=== PATIENT | female | born 1950 | race Two or more races ===

== ENCOUNTER 2022-02-28 12:55 | Outpatient (REF) | payer OTHER, SELFPAY ==
[2022-02-28 14:49] LABS: Vitamin B12 1089 pg/mL (200-900)
== END 2022-02-28 12:56 | disposition home or self-care (01) ==
LOC: HO.LAB 12:55
PROVIDERS: Visit Provider Psychiatry & Neurology Neurology
DX: F03.90 Unspecified dementia, unspecified severity, without behavioral disturbance, psychotic disturbance, mood disturbance, and anxiety (principal)
CPT/HCPCS: 36415; 82607

== ENCOUNTER 2024-05-15 08:09 | Outpatient (REF) | payer OTHER, SELFPAY ==
[2024-05-15 14:26] LABS: MANUAL DIFF FLAG NO
[2024-05-15 14:36] LABS: Basophils Percent Auto 0.5 % (0-2); Eosinophils Absolute Auto 0.1 X10*3/uL (0.0-0.4); Eosinophils Percent Auto 1.4 % (0-4); Hematocrit 40.6 % (37.0-47.0); Hemoglobin 13.4 g/dl (12.0-16.0); Imm Gran Abs Auto 0.02 X10*3/uL (0.00-0.03); Imm Gran Pct Auto 0.3 % (0.0-0.4); Lymphocytes Absolute Auto 1.5 X10*3/uL (1.2-4.9); Lymphocytes Percent Auto 25.8 % (20-40); Mean Corpuscular Hemoglobin 27.6 pg (27.0-33.0); Mean Corpuscular Volume 83.5 fL (80.0-98.0); Mean Platelet Volume 11.9 fL (9.4-12.3); Monocytes Absolute Auto 0.4 X10*3/uL (0.1-1.2); Monocytes Percent Auto 6.1 % (2-11); Neutrophils Absolute Auto 3.8 x10*3/uL (2.0-8.3); Neutrophils Percent Auto 65.9 % (45-73); Platelet Count 214 X10*3/uL (160-400); Red Blood Count 4.86 X10*6/uL (4.20-5.50); Red Cell Distribution Width 13.6 % (11.0-16.0); White Blood Count 5.8 X10*3/uL (4.8-10.8)
[2024-05-15 14:56] LABS: Alanine Aminotransferase 36 U/L (0-31); Albumin Level 4.3 g/dL (3.5-5.0); Alkaline Phosphatase 85 U/L (39-117); Anion Gap 9 (12-20); Aspartate Amino Transferase 37 U/L (5-31); Bilirubin Total 1.4 mg/dL (0.0-1.0); Blood Urea Nitrogen 20 mg/dL (9-16); Calcium 9.4 mg/dL (8.4-10.2); Carbon Dioxide 32 mmol/L (22-29); Chloride 104 mmol/L (96-108); Cholesterol 139 mg/dL (<200); Estimated Glomerular Filt Rate > 60; Glucose Random 95 mg/dL (60-115); HDL Cholesterol 46 mg/dL (>40); LDL Cholesterol Calculated 71 mg/dL (<100); Potassium 3.4 mmol/L (3.3-5.1); Sodium 142 mmol/L (135-145); Total Protein 7.7 g/dL (6.5-8.0); Triglycerides 110 mg/dL (<150)
[2024-05-15 15:16] LABS: TSH reflex Free T4 2.12 uIU/mL (0.32-4.0)
[2024-05-16 03:38] LABS: ~Hepatitis C Antibody Nonreactive (Nonreactive)
== END 2024-05-15 08:10 | disposition home or self-care (01) ==
LOC: HO.CHCLDS 08:09
PROVIDERS: Visit Provider Internal Medicine
DX: I10 Essential (primary) hypertension (principal); M19.90 Unspecified osteoarthritis, unspecified site
CPT/HCPCS: 36415; 80053; 80061; 84443; 85025; 86803

== ENCOUNTER 2024-08-26 15:50 | Outpatient (AMB) | payer MEDICARE, SELFPAY ==
--- NOTE | 2024-08-26 15:51 | A.OFFVIS_ITS ---
Vital Signs 08/26/24 16:04 Height 5 ft 4 in Weight 208 lb 8.917 oz BMI 35.8 BP 152/78 H Blood Pressure Location Rt brachial Position Sitting Pulse 82 Pulse Source Pulse Oximeter Pulse Oximetry (%) 96 Oxygen Delivery Method Room Air Intake Visit Reasons: colo screening +cologuard Intake Note: NEW PATIENT for colo screening per + cologuard (w/ referral). Prior hx of colo/egd? Once previously per pt. Chief Complaint; C/O intermittent constipation and rectal pain w/o bleeding per pt. Pt reports she goes to the bathroom frequently but has small, hard pieces of stool that she passes. Pt last had colo ~ 20 years ago. Machine Stemmer Required: Yes Machine Stemmer Services: Machine Stemmer Offered & Declined Machine Stemmer Name: Family Information Interpreted: non-clinical & clinical Accompanied by: Son Allergies No Known Allergies Allergy (Verified 08/26/24 15:52) HPI HPI colo screening +cologuard: Details: 73 year old? female with past medical history of osteoporosis, venous insufficiency, hypothyroidism, insomnia, asthma, arthritis, hypertension is here today for pre colonoscopy screening.? Patient is accompanied by her son. Patient was sent to us by her PCP.? Last colonoscopy about 20 years ago or so. Patient recently had positive Cologuard.? Patient denies any gastrointestinal symptoms in the past or at present.? Patient reports occasional constipation. Denies any personal or family history of gastrointestinal disease, colon polyps, or CRC.? Denies history of difficulty with sedation or anesthesia in the past.? Negative for history of sleep apnea.? Denies any history of cardiac, renal, pulmonary, or hepatic disease.?? No history of infectious? diseases like hepatitis A, B, C, HIV or tuberculosis.? Patient is not on any anticoagulation [facility] Medical History Osteoporosis Venous insufficiency Venous stasis dermatitis Hypothyroidism Insomnia Mild intermittent asthma Arthritis HTN (hypertension) Surgical History [place] teeth extracted Review of Systems Const Denies weight gain and Denies weight loss ENT Reports no additional complaints, Denies dysphagia and Denies odynophagia Card Reports no additional complaints Resp Reports no additional complaints GI Denies abdominal pain, Denies belching, Denies melena, Denies bloating, Denies change in bowel habits, Reports constipation, Denies dysphagia, Denies excessive flatus, Denies dyspepsia, Denies heartburn, Denies diarrhea, Denies loose stools, Denies nausea, Denies odynophagia and Denies vomiting Reports no additional complaints Musc Reports no additional complaints Neuro Reports no additional complaints Psych Reports no additional complaints Endo Reports no additional complaints Physical Exam Vital Signs: Last Vital Signs Pulse 82 08/26/24 16:04 BP 152/78 H 08/26/24 16:04 Pulse Ox 96 08/26/24 16:04 Oxygen Delivery Method Room Air 08/26/24 16:04 BMI result Body Mass Index 35.8 Const General: healthy appearing and no acute distress Nutritional Appearance: well nourished and obese Orientation/consciousness: patient oriented x3 Resp Effort & Inspection: normal respiratory effort, able to speak in complete sentences, no tracheal deviation and symmetric chest movement Auscultation: clear to auscultation bilaterally Cardio Rate: regular rate GI Inspection: Yes normal to inspection and No distended Palpation (GI): Soft to palpation, not firm, nontender and No hepatosplenomegaly present Auscultation: normal bowel sounds General: Yes no CVA tenderness Back/Spine/Pelvis Back: no CVA tenderness Skin General skin exam: elasticity normal, turgor normal and dry skin Neuro General: patient oriented x3 Psych Appearance: grossly normal Mental Status: mental status grossly normal Assessment & Plan Assessment & Plan (1) Screen for colon cancer: Code(s): Z12.11 - Encounter for screening for malignant neoplasm of colon (2) Positive colorectal cancer screening using Cologuard test: Code(s): R19.5 - Other fecal abnormalities Plan Patient denies any cardiac or respiratory symptoms.? Occasional constipation. Patient reports that she usually increases water or eats more vegetables. Denies any issues with anesthesia in the past.? Denies any history of sleep apnea.? No history infectious diseases in the past or present.? Not on any anticoagulation therapy.? No family or personal history of colon cancer or polyps.? Patient denies melena, hematochezia, unintentional weight loss or ribbo n like stools.? Discussed at length the pre-procedure,? prep, diet & medications as well as what to expect prior, during and after the procedure.?? Stressed the importance of good bowel prep.? Recommended the use of Vaseline or Calmoseptine OTC & baby wipes with bowel movements to promote comfort.? ?Patient verbalizes understanding and agrees to plan of care.? She was given the opportunity to ask questions and all questions answered.? We will see her after the procedure.? Medications: New polyethylene glycol 3350 (Miralax) As directed by gastroenterology department at [facility] 238 grams PO ONCE 238 grams 0RF Z12.11 - Encounter for screening for malignant neoplasm of colon bisacodyl (Dulcolax (bisacodyl)) take 4 tabs at noon the day before your colonoscopy 20 mg (4 x 5 mg) PO ONCE 4 tabs 0RF 1 day Z12.11 - Encounter for screening for malignant neoplasm of colon Coding Level of Care Code New Pt Level 3 (72200) Diagnoses Screen for colon cancer Z12.11 Positive colorectal cancer screening using Cologuard test R19.5 Time Spent (min) 40 Comment 30 minutes spent with patient and additional 10 minutes spent reviewing her records
[2024-08-26 16:04] VITALS: BP 152/78; PULSE 82; O2SAT 96; BMI 35.8
--- OUTSIDE RECORDS SUMMARY | 2024-08-26 18:36 | XMS_ITS | Encounter Summary ---
Author Organization [facility] Address [address] [place] [address] Care Team Providers Care Car Retarder Operator Name Role Phone Brady Schmidt MD Primary Care Provider Un available Alivia Yañez MD Primary Care Provider Unavail able Franko Eli MD Primary Care Provider Karen Urbano MD Primary Care Prov ider Karen Ramos MD Primary Care Prov ider Franko Eli MD Primary Care Provider Karen Urbano MD Primary Care Prov ider Encounter Details Date Type Department Care Team Description 10/22/2015 [facility] Medical Records [address] [place] [id number] Kay Webb Social History Tobacco Use Types Packs/Day Years Used Date Smoking Tobacco: Never Smokeless Tobacco: Never Alcohol Use Standard Drinks/Week Comments No 0 (1 standard drink = 0.6 oz pur e alcohol) Sex Assigned at Date Recorded Not on file Job Start Date Occupation Industry Not on file Not on file Not on file documented as of this encounter Plan of Treatment Not on file documented as of this encounter Visit Diagnoses Not on filedocumented in this encounter Care Teams Car Retarder Operator Relationship Specialty Start Date End Date Brady Schmidt MD PCP - General Internal Medicine 09/03/15 9 Alivia Yañez MD PCP - General Internal Medicine 01/28/19 05/01/21 Franko Eli MD PCP - General Internal Medicine 05/02/21 11/21/21 Karen Ramos MD [address] [place] [id number] PCP - General Internal Medicine 12/26/21 12/26/21 Karen Ramos MD [address] [place] [address] PCP - General Internal Medicine 11/22/21 12/01/21 Franko Eli MD PCP - General Internal Medicine 12/02/21 12/25/21 Karen Ramos MD [address] [place] [address] PCP - General Internal Medicine 12/27/21 documented as of this encounter
--- OUTSIDE RECORDS SUMMARY | 2024-08-26 18:36 | XMS_ITS | Encounter Summary ---
Author Organization [facility] Address [address] [place] [address] Care Team Providers Care Catering Coordinator Name Role Phone Brady Schmidt MD Primary Care Provider Un available Alivia Yañez MD Primary Care Provider Unavail able Franko Eli MD Primary Care Provider Karen Urbano MD Primary Care Prov ider Karen Ramos MD Primary Care Prov ider Franko Eli MD Primary Care Provider Karen Urbano MD Primary Care Prov ider Encounter Details Date Type Department Care Team Description 09/16/2015 Release of Information Medical Records [address] [place] [id number] Abstract, Provider Social History Tobacco Use Types Packs/Day Years Used Date Smoking Tobacco: Never Smokeless Tobacco: Never Alcohol Use Standard Drinks/Week Comments Not Asked 0 (1 standard drink = 0.6 oz pur e alcohol) Sex Assigned at Date Recorded Not on file Job Start Date Occupation Industry Not on file Not on file Not on file documented as of this encounter Plan of Treatment Not on file documented as of this encounter Visit Diagnoses Not on filedocumented in this encounter Care Teams Catering Coordinator Relationship Specialty Start Date End Date Brady Schmidt MD PCP - General Internal Medicine 09/03/15 9 Alivia Yañez MD PCP - General Internal Medicine 01/28/19 05/01/21 Franko Eli MD PCP - General Internal Medicine 05/02/21 11/21/21 Karen Ramos MD [address] [place] [id number] PCP - General Internal Medicine 12/26/21 12/26/21 Karen Ramos MD [address] [place] [id number] PCP - General Internal Medicine 11/22/21 12/01/21 Franko Eli MD PCP - General Internal Medicine 12/02/21 12/25/21 Karen Ramos MD [address] [place] [id number] PCP - General Internal Medicine 12/27/21 documented as of this encounter
--- OUTSIDE RECORDS SUMMARY | 2024-08-26 18:36 | XMS_ITS | Encounter Summary ---
Author Organization [facility] Address [address] [facility] [address] [place] [address] Care Team Providers Care Quality Control Auditor Name Role Phone Jef Guzman MD Primary Care Provider Reason for Visit * Reason Onset Date Comments Appointment Request 07/04/2024 Encounter Details Date Type Department Care Team ([facility] st Contact Info) Description 07/04/2024 Telephone [facility] [address] [place] [address] Jef Guzman MD [address] [place], [place] [phone] Appointment Request Social History Tobacco Use Types Packs/Day Years Used Date Smoking Tobacco: Never Passive Smoke Exposure: Never Smokeless Tobacco: Never Alcohol Use Standard Drinks/Week Comments Never 0 (1 standard drink = 0.6 oz pur e alcohol) Alcohol Answer Date Recorded Q1: How often do you have a drink containing alc ohol? 2 05/02/2024 Q2: How many drinks containi ng alcohol do you have on a typical day when you are drinking? 0 05/02/2024 Q3: How often do you have six or more drinks on one occasion? 1 05/02/2024 Depression Answer Date Recorded Patient Health Questionnaire-9 Score 17 05/02/2024 Patient Health Questionnaire-9 Score 17 05/02/2024 Last PHQ-9: Questionnaire Data Not on file 1 07/03/2023 Housing Stability Answer Date Recorded What is your housing situation today? I have elsa humphrey 05/02/[address] you li ve. Do you have problems with any of the following? Inadequate heat 05/02/2024 Food Insecurity Answer Date Recorded Within the past 12 months, y ou worried that your food would run out before you got money to buy more: Sometimes True 12/06/ 2024 Within the past 12 months,th e food you bought just didn't last and you didn't have enough money to get more: Sometimes True 05/02/2024 Transportation Answer Date Recorded In the past 12 months, has l ack of transportation kept you from medical appts, meetings, work or from getting things needed for daily living? No 04/18/2024 Utilities Answer Date Recorded In the past 12 months, has t he electric, gas, oil or water company threatened to shut off services in your home? No 05/02/2024 Depression Answer Date Recorded Patient Health Questionnaire-2 Score 5 05/02/2024 Internet Access Answer Date Recorded Internet Access Q1 Yes 05/02/2024 Internet Access Q2 Not on file 05/02/2024 Comments Unknown Sex and Gender Information Value Date Recorded Sex Assigned at Female 03/27/2022 10:28 AM EDT Legal Sex Female 10:28 AM EDT Gender Identity Female 03/27/2022 10:28 AM EDT Sexual Orientation Straight 03/27/2022 10 :28 AM EDT documented as of this encounter Miscellaneous Notes * Telephone Encounter - Sang Ivory - 07/04/2024 11:05 AM EST Tc from pt stating that they received a letter to schedule a derm appt with . documented in this encounter Plan of Treatment Upcoming Encounters Date Type Department Care Team (Late st Contact Info) Description 09/09/2024 9:30 AM EDT Office Visit [facility] MED & PED[facility] [address] [place] [address] Jef Guzman MD [address] [place] [address] 09/10/2024 2:30 PM EDT Office Visit [facility] ADULT DENTAL [address] [place] [address] Ada Rahman, DDS [address] [place] [address] 02/23/2025 1:00 PM EDT Office Visit [facility] [address] [place] [address] Gunjan Hardwick documented as of this encounter Visit Diagnoses Not on filedocumented in this encounter Additional Health Concerns Assessment Noted Time PHQ-9 Depression Total Score: 17 024 2:59 PM EST documented as of this encounter Care Teams Quality Control Auditor Relationship Specialty Start Date End Date Jef Guzman MD [address] [place] [address] PCP - General Internal Medicine 05/02/24 documented as of this encounter
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
--- OUTSIDE RECORDS SUMMARY | 2024-08-26 18:36 | XMS_ITS | Encounter Summary ---
Author Organization [facility] Address [address] [facility] [address] [place] [address] Care Team Providers Care Theatre Director Name Role Phone Jef Guzman MD Primary Care Provider [phone] Reason for Referral * Consultation (Routine) - Pending Review Specialty Diagnoses / Procedures Referred By Sue velez Referred To Contact Gastroenterology Diagnoses Positive colorectal cancer screening using Cologuard test Jef Guzman MD [address] [place] [address] Phone: tel: fax: Manjinder Melchor MD [address] [place] [address] Phone: tel: fax: Referral ID Status Reason Start Date Expiration Date Visits Requested Visits Authorized [id number] Pending Review Specialty Services Required 05/29/2024 05/29/2025 1 1 Encounter Details Date Type Department Care Team (Late st Contact Info) Description 05/29/2024 Orders Only [facility] [address] [place] [address] Jef Guzman MD [address] [place] [address] Positive colorectal cancer screening using Cologuard test (Primary Dx) Social History Tobacco Use Types Packs/Day Years [...] got money to buy more: Sometimes True 2023 Within the past 12 months,th e food [...] AM EDT documented as of this encounter Plan of Treatment Upcoming Encounters Date Type Department Care Team ([facility] st Contact Info) Description 09/09/2024 9:30 AM EDT Office Visit [facility] [address] [place], [place] [phone] Jef Guzman MD [address] [place] [address] 09/10/2024 2:30 PM EDT Office Visit [facility] [address] [place] [address] Ada Rahman, DDS [address] [facility] [place] [address] 02/23/2025 1:00 PM EDT Office Visit [facility] [address] [place] [address] Gunjan Hardwick Scheduled Referrals Name Type Priority Associated Diagnoses Order Schedule Referral to Gastroenterology Outpatient Referral Routine Positive colorectal cancer screening using Cologuard test Expected: 05/29/2024 (Approximate), Expires: 05/29/2025 documented as of this encounter Visit Diagnoses Diagnosis Positive colorectal cancer screening using Cologuard test- Primary documented in this encounter Additional Health Concerns Assessment Noted Time PHQ-9 Depression Total Score: 17 024 2:59 PM EST documented as of this encounter Care Teams Theatre Director Relationship Specialty Start Date End Date Jef Guzman MD [address] [place] [address] PCP - General Internal Medicine 05/02/24 documented as of this encounter
--- OUTSIDE RECORDS SUMMARY | 2024-08-26 18:36 | XMS_ITS | Encounter Summary ---
Author Organization [facility] Address [address] [facility] 7[address] [place] [address] Care Team Providers Care Scheduling Coordinator Name Role Phone Jef Guzman MD Primary Care Provider Encounter Details Date Type Department Care Team (Latest Contact Info) Description 11/03/2020 Abstract [facility] CONVERSIONS Dental, Provider, DDS Social History Tobacco Use Types Packs/Day Years Used Date Smoking Tobacco: Never Assessed Comments Unknown Sex and Gender Information Value [...] Description 09/09/2024 9:30 AM EDT Office Visit [facility] MED [facility] PED[facility] [address] [place] [address] Jef Guzman MD [address] [place] [address] 09/10/2024 2:30 PM EDT Office Visit [facility]ULT DENT[facility] [address] [place] [address] Ada Rahman DDS [address] [place], [place] [phone] 02/23/2025 1:00 PM EDT Office Visit [facility] [address] [place] [address] Gunjan Hardwick documented as of this encounter Visit Diagnoses Not on filedocumented in this encounter Care Teams Scheduling Coordinator Relationship Specialty Start Date End Date Jef Guzman MD [address] [place] [address] PCP - General Internal Medicine 05/02/24 documented as of this encounter
--- OUTSIDE RECORDS SUMMARY | 2024-08-26 18:37 | XMS_ITS | Encounter Summary ---
Author Organization [facility] Address [address] [place] [address] Care Team Providers Care Pool Finisher Name Role Phone Brady Schmidt MD Primary Care Provider Un available Alivia Yañez MD Primary Care Provider Franko Eldridge MD Primary Care Provider Karen Urbano MD Primary Care Prov ider Karen Ramos MD Primary Care Prov ider Franko Eli MD Primary Care Provider Karen Urbano MD Primary Care Prov ider Reason for Visit * Reason Onset Date Comments REFERRAL 06/02/2016 OBGYN Encounter Details Date Type Department Care Team Description 06/02/[address] [address] Brady Schmidt MD REFERRAL (OBGYN) Social History Tobacco Use Types Packs/Day Years Used Date Smoking Tobacco: Never Smokeless Tobacco: Never Alcohol Use Standard Drinks/Week Comments No 0 (1 standard drink = 0.6 oz pur e alcohol) Sex Assigned at Date Recorded Not on file Job Start Date Occupation Industry Not on file Not on file Not on file documented as of this encounter Miscellaneous Notes * Telephone Encounter - Yaz Rodriguez - 06/02/2016 3:02 PM EST FYI to referring provider; We have attempted to contact this patient for the order placed to see SENIOR UX DESIGNER for routine exam, however, patient has not responded to any of our attempts and for this reason patients order will be closed. If patient changes her mind please have her contact SENIOR UX DESIGNER for an appointment Thank you documented in this encounter Plan of Treatment Not on file documented as of this encounter Visit Diagnoses Not on filedocumented in this encounter Care Teams Pool Finisher Relationship Specialty Start Date End Date Brady Schmidt MD PCP - General Internal Medicine 09/03/15 9 Aliiva Yañez MD PCP - General Internal Medicine 01/28/19 05/01/21 Franko Eli MD PCP - General Internal Medicine 05/02/21 11/21/21 Karen Rmaos MD [address] [place] [id number] PCP - General Internal Medicine 12/26/21 12/26/21 Karen Ramos MD [address] [place] [address] PCP - General Internal Medicine 11/22/21 12/01/21 Franko Eli MD PCP - General Internal Medicine 12/02/21 12/25/21 Karen Ramos MD [address] [place] [id number] PCP - General Internal Medicine 12/27/21 documented as of this encounter
--- OUTSIDE RECORDS SUMMARY | 2024-08-26 18:37 | XMS_ITS | Clinical Summary ---
Author Organization [address] Address [address] [place] [id number] Phone Care Team Providers Care Mill Labor Supervisor Name Role Phone Jef Guzman MD Primary Care Provider [phone] Allergies Active Allergy Reactions Criticality Noted Date Comments Atorvastatin Cough 08/23/2016 Medications albuterol HFA (PROAIR HFA ; PROVENTIL HFA ; VENTOLIN HFA) 90 mcg/actuation inhaler Inhale 2 puffs by mouth every 4 (four) hours if needed for wheezing (cough). 4 Active amLODIPine (NORVASC) 5 mg tablet Take 1 tablet (5 mg total) by mouth 1 (one) time each day. 4 Active levothyroxine (SYNTHROID, LEVOTHROID) 50 mcg tablet Take 1 tablet (50 mcg total) by mouth 1 (one) time each day. 4 Active cyclobenzaprin e (FLEXERIL) 5 mg tablet Take 1 Tablet by mouth 2 times daily as needed for Muscle spasms for up to 10 days. 4 Active simvastatin (ZOCOR) 20 mg tablet Take 1 tablet (20 mg total) by mouth at bedtime. 4 Active loratadine (CLARITIN) 10 mg tablet Take 1 tablet (10 mg total) by mouth 1 (one) time each day. 4 Active triamterene-hy droCHLOROthiaz edin (MAXZIDE-25) 37.5-25 mg per tablet TAKE 1 TABLET BY MOUTH DAILY 20 tablet 5 Active triamterene-hy droCHLOROthiaz edin (MAXZIDE-25) 37.5-25 mg per tablet TAKE 1 TABLET BY MOUTH DAILY 30 tablet 01/09 025 Discontinued Active Problems Problem Noted Date Diagnosed Date Intermittent asthma 07/07/2020 Internal hemorrhoids 06/07/2017 Depression 11/23/2016 Melasma 11/23/2016 Insomnia 05/25/2016 Overview (03/03/2024): F/u with [facility]N Diverticulosis 09/14/2015 Allergic rhinitis 09/10/2015 Hyperlipidemia 09/10/2015 Hypertension 09/10/2015 Hypothyroidism 09/10/2015 Osteoporosis 09/10/2015 Overview (03/03/2024): DEXA 02/18/15 Lumbar T score -2.8, Femur T score 0.3 Encounters Date Type Department Care Team Description 07/15/2024 7:59 AM EST - 07/15/2024 11:59 PM EST Hospital Encounter Radiology Department [address] [phone] Encounter for screening mammogram for breast cancer Discharge Disposition: Home or Self Care from Last 3 Months Immunizations Name Administration Dates Next Due Influenza trivalent, 0.5mL ( Fluzone High-dose) 65yo and older 07/25/2021,01/27/2020,04/14/2019 Influenza trivalent, with pr eservative (Fluzone; Afluria) 6mo and older 02/21/2017,05/25/2016 Influenza, Unspecified 02/20/2017 Tonchidot SARS-CoV-2 COVID-19, mRNA, LNP-S, preservative free 03/10/2021 Pneumococcal conjugate 20 va lent (Prevnar 20, PCV 20) 2mo and older 06/14/2022 Pneumococcal polysaccharide 23 valent (Pneumovax 23) 2yo and older 04/14/2019,03/29/2018 Tdap Tetanus diptheria acell ular pertussis (Boostrix; Adacel) 7yo and older 05/25/2016 Surgical History Surgery Date Site/Laterality Comments HYSTERECTOMY PROCEDURE: HISTORICAL HYSTERECTOMY; COMMENT: fibroids OTHER SURGICAL HISTORY Bilateral PROCEDURE: [place] STAB PHLEBT VARICOSE VEINS 1 XTR > 20 INCS SECTION PROCEDURE: HISTORICAL DELIVERY COLONOSCOPY 08/05/2007 PROCEDURE: HISTORICAL COLONOSCOPY; COMMENT: [facility]; small tubular adenoma from the right colon, second small polyp from the right colon was lost. COLONOSCOPY 04/17/2011 PROCEDURE: HISTORICAL COLONOSCOPY; COMMENT: [facility]; no polyps. COLONOSCOPY 08/28/2017 PROCEDURE: HISTORICAL COLONOSCOPY; COMMENT: Extensive diverticulosis sigmoid colon, no polyps. Medical History Medical History Date Comments Osteoporosis 09/10/2015 DX:Osteoporosis Hypothyroidism 09/10/2015 DX:Hypothyroidis m Hypertension 09/10/2015 DX:Hypertension Allergic rhinitis 09/10/2015 DX:Allergic rh initis Hyperlipidemia 09/10/2015 DX:Hyperlipidemi a Diverticulosis 09/14/2015 DX:Diverticulosi s Melasma 11/23/2016 DX:Melasma Depression 11/23/2016 DX:Depression Internal hemorrhoids 06/07/2017 DX:Internal hemorrhoids Family History Medical History Relation Name Comments Uterine cancer Aunt No Known Problems Brother No Known Problems Father No Known Problems Maternal Grandfather No Known Problems Maternal Grandmother Glaucoma Mother Hypertension Mother No Known Problems Other No Known Problems Paternal Grandfather Other: skin cancer Paternal Grandmother Breast cancer Sister 1 dx 60 Glaucoma Sister 1 dx 60 Ovarian cancer Sister 1 dx 60 Breast cancer Sister 2 No Known Problems Uncle Blindness Neg Hx Cataracts Neg Hx Macular degeneration Neg Hx Strabismus Neg Hx Relation Name Status Comments Aunt Brother Father (Age 69) hepatic ci rrhosis Maternal Grandfather Maternal Grandmother Mother Alive Other Paternal Grandfather Paternal Grandmother Sister 1 dx 60 Sister 2 Alive Uncle Social History Tobacco Use Types Packs/Day Years Used Date Smoking Tobacco: Never Smokeless Tobacco: Never Alcohol Use Standard Drinks/Week Comments No 0 (1 standard drink = 0.6 oz pur e alcohol) Comments No Sex and Gender Information Value Date Recorded Sex Assigned at Not on file Legal Sex Female 12:48 PM EST Gender Identity Not on file Sexual Orientation Not on file Obstetrics History Para Term AB IAB SAB Ectopic Multiple Livin g Live Births 2 2 2 2 Date Outcome GA Total Labor Labor/2nd/3rd Weight Sex Type Anes PTL Ivone A1 A5 Name Clin Term Term Last Filed Vital Signs Vital Sign Reading Time Taken Comments Blood Pressure 130/80 05/23/2024 10:28 AM EST Pulse 88 05/23/2024 10:28 AM EST Temperature - - Respiratory Rate 16 05/23/2024 10:28 AM EST Oxygen Saturation - - Inhaled Oxygen Concentration - - Weight 90.7 kg (200 lb) 05/23/2024 10:28 AM EST Height 152.4 cm (5') 05/23/2024 10:28 AM EST Body Mass Index 39.06 05/23/2024 10:28 AM EST Plan of Treatment Health Maintenance Due Date Last Done Comments Zoster Vaccines (1 of 2) 2002 RSV Immunization Patients 60+ Years Old (1 - Risk 60-74 years 1-dose series) 2012 Medicare Annual Wellness Visit 05/06/2022 Social Influencers of Health Screening 05/06/2022 COVID-19 Vaccine ( season) 2024 03/10/2021, 09/18/2020, 08/24/2020 Influenza Vaccine (#1) 2024 , 01/27/2020, 04/14/2019, Additional history exists Falls Risk Assessment 01/28/2025 01/29/2024 Depression Screening 05/02/2025 05/02/2024, 01/29/20 24 Hypertension/CHF/CAD Annual BMP Blood Test 05/15/2025 05/15/2024, 06/12/2023 DTaP,Tdap,and Td Vaccines (2 - Td or Tdap) 05/25/2026 05/25/2016 Breast Cancer Screening 07/15/2026 07/15/19, 07/05/2023, 06/30/2022, Additional history exists Colorectal Cancer Screening: FIT-DNA (Cologuard) 05/23/2027 05/23/2024 Cholesterol Screening (Lipid Panel) 05/15/2029 05/15/2024, 06/12/2023 Osteoporosis Screening (Bone Density Screening) 09/23/2031 09/22/2021, 06/02/2019 Colorectal Cancer Screening: Colonoscopy Discontinued 08/28/2017 Pneumococcal Vaccine: 50+ Years Completed 06/14/2022, 04/14/2019, 03/29/2018 Hepatitis C Screening Completed 05/15/2024, 017 HIB Vaccines Aged Out No longer eligi ble based on patient's age to complete this topic HPV Vaccines Aged Out No longer eligi ble based on patient's age to complete this topic Hepatitis A Vaccines Aged Out No long er eligible based on patient's age to complete this topic Hepatitis B Vaccines Aged Out No long er eligible based on patient's age to complete this topic IPV Vaccines Aged Out No longer eligi ble based on patient's age to complete this topic MMR Vaccines Aged Out No longer eligi ble based on patient's age to complete this topic Meningococcal ACWY Vaccine Aged Out N o longer eligible based on patient's age to complete this topic Meningococcal B Vacine Aged Out No lo nger eligible based on patient's age to complete this topic RSV Immunization Patients Under 20 months Aged Out No longer eligible based on patient's age to complete this topic Varicella Vaccines Aged Out No longer eligible based on patient's age to complete this topic Procedures Procedure Name Priority Date/Time Associated Diagnosis Comments MG MAMMO DIGITAL SCREENING W LAMONT BILAT Routine 07/15/2024 8:14 AM EST Encounter for screening mammogram for breast cancer DEPRESSION SCREENING Routine 01/29/2024 FALLS RISK ASSESSMENT Routine 01/29/2024 ANNUAL BMP BLOOD TEST Routine 06/12/2023 LIPID PANEL Routine 06/12/2023 DXA BONE DENSITY STUDY 1+ SITS AXIAL SKEL Routine 09/22/2021 9:14 AM EDT Age-related osteoporosis without current pathological fracture COLONOSCOPY Routine 08/28/2017 HEPATITIS C SCREENING Routine 08/23/2016 from Last 3 Months or Most Recently Relevant to Health Maintenance Results * MG Mammo Digital Screening w Lamont bilat (07/15/2024 8:14 AM EST) Anatomical Region Laterality Modality Breast Bilateral Mammography 07/15/2024 2:39 PM EST Impressions 07/15/2024 2:40 PM EST No mammographic evidence of malignancy. BREAST DENSITY: B - There are scattered areas of fibroglandular density. BI-RADS CATEGORY: 1 - NEGATIVE RECOMMENDATION: Screening bilateral mammogram is recommended in 1 year. MAMMO LOCATION: [facility], [address] [place] [address], [id number], . -------- FINAL REPORT -------- Dictated By: Basia Altman Dictated Date: 07/15/2024 14:39 ET Assigned Physician: Basia Altman Reviewed and Electronically Signed By: Basia Altman Signed Date: 07/15/2024 14:40 ET Workstation ID: [id number] Transcribed By: Self Edit Transcribed Date: 07/15/2024 14:39 ET Narrative 07/15/2024 2:40 PM EST EXAM: Screening Mammogram CLINICAL: 73 years old, Female, routine annual exam. COMPARISON: 07/05/2023 and as far back as 06/15/2020 ?? TECHNIQUE: Bilateral MLO and CC views were obtained digitally with 3-D mammogram (digital breast tomosynthesis). Computer-aided detection was utilized in evaluation of this exam (CAD). FINDINGS: No new suspicious mass, architectural distortion, or suspicious calcifications. Procedure Note Basia Altman MD - 07/15/2024 EXAM: Screening Mammogram CLINICAL: 73 years old, Female, routine annual exam. COMPARISON: 07/05/2023 and as far back as 06/15/2020 TECHNIQUE: Bilateral MLO and CC views were obtained digitally with 3-Dmammogram (digital breast tomosynthesis). Computer-aided detection wasutilized in evaluation of this exam (CAD). FINDINGS: No new suspicious mass, architectural distortion, or suspiciouscalcifications. IMPRESSION: No mammographic evidence of malignancy. BREAST DENSITY: B - There are scattered areas of fibroglandular density. BI-RADS CATEGORY: 1 - NEGATIVE RECOMMENDATION: Screening bilateral mammogram is recommended in 1 year. MAMMO LOCATION: [facility], [address] [place] [address], [id number], . -------- FINAL REPORT -------- Dictated By: Basia Altman Dictated Date: 07/15/2024 14:39 ET Assigned Physician: Basia Altman Reviewed and Electronically Signed By: Basia Altman Signed Date: 07/15/2024 14:40 ET Workstation ID: [id number] Transcribed By: Self Edit Transcribed Date: 07/15/2024 14:39 ET Karen Love MD IMG BI PROCEDURES Final Result * Falls Risk Assessment (01/29/2024) [facility] Falls Risk Assessment Abstracted Historical Provider [place] HEALTH MAINTENANCE Final Result * Depression Screening (01/29/2024) [facility] Depression Screening Abstracted [facility] Provider HEALTH MAINTENANCE Final Result * Annual BMP Blood Test (06/12/2023) [facility] Annual BMP Blood Test Abstracted Result [facility] Provider HEALTH MAINTENANCE Final Result * Lipid panel (06/12/2023) [facility] LDL/HDL Ratio 3 0 - 4 Triglycerides 129 0 - 150 mg/dL Cholesterol 151 0 - 200 mg/dL HDL 49 >=40 mg/dL LDL Cholesterol 77 0 - 100 mg/dL Blood Venous blood specimen / Unknown Result [facility] Provider LAB BLOOD ORDERABLES Lyssa l Result * DXA BONE DENSITY STUDY 1+ SITS AXIAL SKEL (09/22/2021 9:14 AM EDT) Anatomical Region Laterality Modality Bone Densitometr y 07/25/2021 8:52 AM EST Narrative 09/23/2021 3:20 PM EDT BONE DENSITY ? Lumbar Spine T-score is -1.7 ?? (SD relative to 20-29 y/o adult) Z-score is +0.3 ??(SD relative to age matched peers) This is consistent with osteopenia by criteria defined by the WHO. Left Hip T-score is -0.3 Z-score is +1.2 This is normal by criteria defined by the WHO. Comparison exam(s): no statistically significant change in the bone density of the hip and lumbar spine when compared to most recent bone density examination ?? Confidence level is +/-95%. Impression: Based on the World Health Organization criteria, Celestina Jules should be classified as having osteopenia. This patient is already being treated for osteoporosis. [facility] Department of Internal Medicine recommends using National Osteoporosis Foundation (NOF) guidelines in treatment decisions related to osteoporosis. NOF guidelines suggest considering treatment for postmenopausal women and men aged 50 or older presenting with the following: History of hip or vertebral fracture. T-score less than or equal to -2.5 (DXA) at the femoral neck, total hip, or spine, after appropriate evaluation to exclude secondary causes. Low bone mass (T-score between -1.0 and -2.5 at the femoral neck or spine) AND a 10-year probability of a hip fracture greater than or equal to 3% OR a 10-year probability of a major osteoporosis-related fracture greater than or equal to 20% based on the [place]-adapted WHO algorithm Please note that all treatment decisions require clinical judgment and consideration of individual patient factors, including patient preferences, co-morbidities, previous drug use, risk factors not captured in the FRAX model (e.g., frailty, falls, vitamin D deficiency, increased bone turnover, interval significant decline in bone density) and possible under- or over-estimation of fracture risk by FRAX. Procedure Note Damon Rock MD - 05/16/2022 BONE DENSITY Lumbar Spine T-score is -1.7 (SD relative to 20-29 y/o adult) Z-score is +0.3 (SD relative to age matched peers) This is consistent with osteopenia by criteria defined by the WHO. Left Hip T-score is -0.3 Z-score is +1.2 This is normal by criteria defined by the WHO. Comparison exam(s): no statistically significant change in the bonedensity of the hip and lumbar spine when compared to most recent bonedensity examination Confidence level is +/-95%. Impression: Based on the World Health Organization criteria, Celestina Jules should beclassified as having osteopenia. This patient is already being treated forosteoporosis. [facility] Department of Internal Medicine recommendsusing National Osteoporosis Foundation (NOF) guidelines in treatmentdecisions related to osteoporosis. NOF guidelines suggest consideringtreatment for postmenopausal women and men aged 50 or older presentingwith the following: History of hip or vertebral fracture. T-score less than or equal to -2.5 (DXA) at the femoral neck, total hip,or spine, after appropriate evaluation to exclude secondary causes. Low bone mass (T-score between -1.0 and -2.5 at the femoral neck or spine)AND a 10-year probability of a hip fracture greater than or equal to 3% ORa 10-year probability of a major osteoporosis-related fracture greaterthan or equal to 20% based on the [place]-adapted WHO algorithm Please note that all treatment decisions require clinical judgment andconsideration of individual patient factors, including patientpreferences, co-morbidities, previous drug use, risk factors not capturedin the FRAX model (e.g., frailty, falls, vitamin D deficiency, increasedbone turnover, interval significant decline in bone density) and possibleunder- or over-estimation of fracture risk by FRAX. Gabby MIX IM DXA PROCEDURES Final Result * Colonoscopy (08/28/2017) [facility] Colonoscopy Abstracted, Positive Anatomical Region Laterality Modality Other Historical Provider HEALTH MAINTENANCE Final Result * Hepatitis C Screening (08/23/2016) [facility] Hepatitis C Screening Abstracted Historical Provider HEALTH MAINTENANCE Final Result from Last 3 Months or Most Recently Relevant to Health Maintenance Insurance [place] [phone] MEDICAID - [place] Care Teams Mill Labor Supervisor Relationship Specialty Start Date End Date Jef Guzman MD [address] [place] [address] PCP - General Internal Medicine 08/13/24
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
--- OUTSIDE RECORDS SUMMARY | 2024-08-26 18:37 | XMS_ITS | Encounter Summary ---
Author Organization [facility] Address [address] [place] [address] Care Team Providers Care Physical Therapist Clinic Director Name Role Phone Karen Ramos MD Primary Care Prov ider Reason for Visit * Reason Comments E-prescribe Rx Request Encounter Details Date Type Department Care Team Description 01/27/2022 Refill Adult Medicine [facility] [address] [place] [phone] Gabby Lucero PA-C [address] [place] [address] E-prescribe Rx Request Social History Tobacco Use [...] encounter Miscellaneous Notes * Telephone Encounter - Sam Serrato M.A. - 01/31/2022 10:43 AM EDT Last ov 12/05/2021 next ov 05/01/2022, 07/25/2022 & 10/24/2022 with pcp Lab Results Component Value Date NA 139 11/22/2021 K 4.0 11/22/2021 CO2 33 11/22/2021 CL 102 11/22/2021 BUN 16 11/22/2021 CREAT 0.86 11/22/2021 GLU 100 11/22/2021 CA 10.0 11/22/2021 GFR > 60 11/22/2021 * Telephone Encounter - Amaya Mari - 01/27/2022 7:27 AM EDT Patient would like script to be: E-PRESCRIBED/FAXED TO PHARMACY WHEN WAS THE PATIENT'S LAST APPOINTMENT IN ADULT MEDICINE? 12/05/21 WHEN WAS THE LAST TIME THE PATIENT SAW THEIR PCP? Hasn't met new PCP yet Does patient have an upcoming appointment? Yes 05/01/22 (THE MEDICATION REQUESTED IS ON THE MED [...] on filedocumented in this encounter Care Teams Physical Therapist Clinic Director Relationship Specialty Start Date End Date Karen Ramos MD [address] [place] [phone] PCP - General Internal Medicine 12/27/21 documented as of this encounter
--- OUTSIDE RECORDS SUMMARY | 2024-08-26 18:37 | XMS_ITS | Encounter Summary ---
Author Organization [facility] Address [address] [place] [address] Care Team Providers Care Supervisor [employer] Name Role Phone Karen Ramos MD Primary Care Prov ider Encounter Details Date Type Department Care Team Description 04/05/2022 [facility] Report Medical Records [address] [place] [phone] Kay Boateng MD Social History Tobacco Use Types Packs/Day Years [...] on filedocumented in this encounter Care Teams Supervisor [employer] Relationship Specialty Start Date End Date Karen Ramos MD [address] [place] [phone] PCP - General Internal Medicine 12/27/21 documented as of this encounter
--- OUTSIDE RECORDS SUMMARY | 2024-08-26 18:37 | XMS_ITS | Encounter Summary ---
Author Organization [facility] Address [address] [place] [address] Care Team Providers Care Telephone Surveyor Name Role Phone Brady Schmidt MD Primary Care Provider Un available Alivia Yañez MD Primary Care Provider [facility] able Franko Eli MD Primary Care Provider Karen Urbano MD Primary Care Prov ider Karen Ramos MD Primary Care Prov ider Franko Eli MD Primary Care Provider Karen Urbano MD Primary Care Prov ider Encounter Details Date Type Department Care Team Description 12/12/2017 [facility] Medical Records [address] [place] [address] Abstract, Provider Social History Tobacco Use Types [...] on filedocumented in this encounter Care Teams Telephone Surveyor Relationship Specialty Start Date End Date Brady Schmidt MD PCP - General Internal Medicine 09/03/15 9 Alivia Yañez MD PCP - General Internal Medicine 01/28/19 05/01/21 Franko Eli MD PCP - General Internal Medicine 05/02/21 11/21/21 Karen Ramos MD [address] [place] [address] PCP - General Internal Medicine 12/26/21 12/26/21 Karen Ramos MD [address] [place] [address] 46617 PCP - General Internal Medicine 11/22/21 12/01/21 Franko Eli MD PCP - General Internal Medicine 12/02/21 12/25/21 Karen Ramos MD [address] [place] [address]248 PCP - General Internal Medicine 12/27/21 documented as of this encounter
--- OUTSIDE RECORDS SUMMARY | 2024-08-26 18:37 | XMS_ITS | Encounter Summary ---
Author Organization [employer] Address [address] [facility] 7[address] [place] [address] Care Team Providers Care Learning And Development Associate Name Role Phone eJf Guzman MD Primary Care Provider [phone] Reason for Visit * Reason Comments Routine Cleaning Dental Exam Encounter Details Date Type Department Care Team ([facility] st Contact Info) Description 08/20/2024 9:00 AM EDT Office Visit [facility] ADULT D[facility]AL [address] [place] [address] Gunjan Hardwick Social History Tobacco Use Types Packs/Day Years [...] is your housing situation today? I have elsajessica humphrey 05/02/[address] you [...] AM EDT documented as of this encounter Progress Notes * Gunjan Hardwick - 08/20/2024 9:00 AM EDT Patient ID: Celestina Jules is a 73 y.o. female. Time Out: Timeout Date: 08/20/24, Timeout Time: 905 Location: [facility] Tooth: Maxilla and Mandible Procedure: Exam, X-rays, and Prophylaxis Verified the above with patient, medical record assistant, and provider. Confirmed via patient's chart, intraorally and by radiographs. Head Of Design: Yes. Language: Singaporean. Head Of Design's Name: Alina. Medical Hx: Vitals: There were no vitals taken for this visit. Medications, Med Hx reviewed with patient and updated in chart. Treatment Provided Dental procedures in this visit D1110 - PROPHYLAXIS - ADULT (Completed) Service provider: Gunjan Washington provider: Mariel Anaya DDS D9450 - CASE PRESENTATION, DETAILED AND EXTENSIVE TREATMENT PLANNING (Completed) Service provider: Gunjan Washington provider: Mariel Anaya DDS D1330 - ORAL HYGIENE INSTRUCTIONS (Completed) Service provider: Gunjan [place] provider: Mariel Anaya DDS D0220 - INTRAORAL - PERIAPICAL FIRST RADIOGRAPHIC IMAGE 17 (Completed) Service provider: Gunjan Washington provider: Mariel Anaya DDS D0230 - INTRAORAL - PERIAPICAL EACH ADDITIONAL RADIOGRAPHIC IMAGE 20 (Completed) Service provider: Gunjan Washington provider: Mariel Anaya DDS Instruments Used: Ultrasonic Scalers, Hand Scalers, and Prophy angle Fluoride: N/A Oral Cancer Screening: No lesions Head/Neck Exam: No Lesions Calculus: Light and Generalized Plaque: Light and Generalized Stain: Light and Generalized Bleeding: Light and Localized Gingiva: Healthy and Recession- localized OH: Fair Perio Chart: Not Completed- Completed on 02/26/2024. Dental exam done by Dr. Mendoza. Oral hygiene instructions provided to patient including brushing technique and flossing. Recommendations: [place] two times daily, modified abraham technique, Floss daily, Electric toothbrush, Soft bristle toothbrush, [place] Tongue, Anti-sensitivity toothpaste Recall Frequency: 6 mo NV: Jewish Hygienist: Gunjan Hardwick RDH * Erasmo Mendoza - 08/20/2024 9:00 AM EDT Dental procedures in this visit D1110 - PROPHYLAXIS - ADULT (Completed) Service provider: Gunjan Washington provider: Mariel Anaya DDS D9450 - CASE PRESENTATION, DETAILED AND EXTENSIVE TREATMENT PLANNING (Completed) Service provider: Gunjan Washington provider: Mariel Anaya DDS D1330 - ORAL HYGIENE INSTRUCTIONS (Completed) Service provider: Gunjan Washington provider: Mariel Anaya DDS D0220 - INTRAORAL - PERIAPICAL FIRST RADIOGRAPHIC IMAGE 17 (Completed) Service provider: Gunjan Washington provider: Mariel Anaya DDS D0230 - INTRAORAL - PERIAPICAL EACH ADDITIONAL RADIOGRAPHIC IMAGE 20 (Completed) Service provider: Gunjan Hardwick Bill[place]y provider: Mariel Anaya DDS Patient ID: Celestina Jules is a 73 y.o. female. Time Out: Date: 08/20/2024 Location: [facility] Tooth: Maxilla and Mandible Procedure: Exam Verified the above with patient, medical record assistant, and provider. Confirmed via patient's chart, intraorally and by radiographs. Head Of Design: not applicable 73 y.o. years old female presents for a periodic examination done by Dr. Erasmo Mendoza CONSENT FORM INITIALED & SIGNED BY THE PATIENT AND COUNTER SIGNED BY Dr. Erasmo Mendoza Chief Complaint: Im here for my cleaning Medical History: Patient does not report any changes in health issues that could alter the Treatment Plan. Medical consult / medical clearance needed: No RAMONA: Pain: N/A Duration: N/A Scale of pain from 1 - 10: N/A Aggravating factors: N/A Pain radiating: N/A Postural variation: N/A Allergies: Reviewed in EHR Medications: Reviewed in EHR Vital signs: There were no vitals taken for this visit. Habits: Smoking: None Drinking: None Brushing: Several times a week Flossing: None Cancer screening: Extra-oral: WNL? Intraoral: WNL Extra-oral examination TMJ Deviation - WNL Clicking - WNL Tenderness - WNL Facial symmetry - WNL Lymph nodes - WNL Cheeks - WNL Intraoral examination Soft tissues - WNL Palate - WNL Tongue - WNL Buccal mucosa - WNL Floor of mouth - WNL Vestibules - WNL Glands - WNL Duct area - WNL Oropharynx - WNL Gingiva Color - [place] Contour - Smooth Recession - Yes Consistency - Thick Texture - Smooth Bleeding on probing - None Radiographs Full Mouth X-rays taken on: 02/26/2024. Quality are of diagnostic value and appropriate for radiographic analysis? : Yes Radiograph interpretation Thickened PDL on: No Abnormal root resorption: No Horizontal Bone Resorption: Yes Abnormal root formation: No Vertical Bone Loss: Yes Periodontal diagnosis: Periodontitis Stage 3 Grade C Hard tissue exam Missing - as charted Plaque - Light Generalized Calculus - Light Generalized Abfraction - Yes Mobility - Yes Furcation - No Occlusion Overbite (mm): 3 mm Overjet (mm): 2 mm Diastema: Yes- 3 mm Right Molar Occlusion: Cannot be determined Left Molar Occlusion: Cannot be determined Right Canine Occlusion: Class 1 Left Canine Occlusion: Class 1 Midline: Center Anterior/Posterior crossbite: No Arches: Wide- Large Gabby Wear Facets: Yes DIAGNOSIS Findings, risks, benefits and alternatives discussed with pt. Reviewed radiographs with pt. Pointedout areas of radiographic calculus. Discussed sequelae of bacteria on gingiva and underlying bone. Recommended prophy, OHI, and SRP. Advised increased frequency of brushing and flossing. 4-6 week perio reevaluation to determine if further treatment indicated. TREATMENT PLAN Phase 1 - Guillermo Phase 2 - Recare Patient agrees with treatment plan. Patient satisfied, dismissed in stable condition. NV: Guillermo Provider: Dr. Erasmo Mendoza Supervising Dentist: Dr. Anaya * Mariel Anaya DDS - 08/20/2024 9:00 AM EDT I have reviewed the documentation and dental procedures completed by the rendering provider, Erasmo Mendoza DDS, and approve their chart entries for this visit. CASTRO Red DDS documented in this encounter Plan of Treatment Upcoming Encounters Date Type Department Care Team (Late st Contact Info) Description 09/09/2024 9:30 AM EDT Office Visit [facility] MED [facility] PEDS [address] [place] [address] Jef Guzman MD [address] [place] [address] 09/10/2024 2:30 PM EDT Office Visit [facility] ADULT D[facility]AL [address] [place] [address] Ada Rahman DDS [address] [place] [address] 02/23/2025 1:00 PM EDT Office Visit [facility] ADULT D[facility] [address] [place] [address] Gunjan Hardwick Scheduled Orders Name Type Priority Associated Diagnoses Orde r Schedule PROPHYLAXIS - ADULT Dental Routine 1 Occ urrences starting 08/20/2024 17 O 17 O RESIN-BASED COMPOSITE - 1 SURF, POSTERIOR Dental Routine [address] arting 08/20/2024 documented as of this encounter Procedures Procedure Name Priority Date/Time Associated Diagnosis Comments PROPHYLAXIS - ADULT Routine 08/20/2024 9 :00 AM EDT PERIODIC ORAL EVALUATION - ESTABLISHED PATIENT Routine 08/20/2024 9:00 AM EDT ORAL HYGIENE INSTRUCTIONS Routine 2024 9:00 AM EDT 17 INTRAORAL - PERIAPICAL FIRST RADIOGRAPHIC IMAGE Routine 08/20/2024 9:00 AM EDT 20 INTRAORAL - PERIAPICAL EACH ADDITIONAL RADIOGRAPHIC IMAGE Routine 08/20/2024 9:00 AM EDT COMPREHENSIVE PERIODONTAL EVALUATION - NEW OR ESTABLISHED PATIENT Routine 08/20/2024 9:00 AM EDT CASE PRESENTATION, DETAILED AND EXTENSIVE TREATMENT PLANNING Routine 08/20/2024 9:00 AM EDT 5 FIXED PARTIAL DENTURE - PONTIC Routine 08/20/2024 12:00 AM EDT 6 PFM CROWN Routine 08/20/2024 12:00 AM EDT documented in this encounter Visit Diagnoses Not on filedocumented in this encounter Additional Health Concerns Assessment Noted Time PHQ-9 Depression Total Score: 17 024 2:59 PM EST documented as of this encounter Care Teams Learning And Development Associate Relationship Specialty Start Date End Date Jef Guzman MD [address] [place] [address] PCP - General Internal Medicine 05/02/24 documented as of this encounter
--- OUTSIDE RECORDS SUMMARY | 2024-08-26 18:37 | XMS_ITS | Encounter Summary ---
Author Organization [facility] Address [address] [place] [address] Care Team Providers Care Factory Expert Name Role Phone Brady Schmidt MD Primary Care Provider Un available Alivia Yañez MD Primary Care Provider Unavail able Franko Eli MD Primary Care Provider Karen Urbano MD Primary Care Prov ider Karen Ramos MD Primary Care Prov ider Franko Eli MD Primary Care Provider Karen Urbano MD Primary Care Prov ider Encounter Details Date Type Department Care Team Description 08/23/2016 Controlled Substance Contract with Plan Medical Records [address] [place] [id number] Abstract, Provider Social History Tobacco Use Types [...] on filedocumented in this encounter Care Teams Factory Expert Relationship Specialty Start Date End Date Brady Schmidt MD PCP - General Internal Medicine 09/03/15 9 Alivia Yañez MD PCP - General Internal Medicine 01/28/19 05/01/21 Franko Eli MD PCP - General Internal Medicine 05/02/21 11/21/21 Kraen Ramos MD [address] [place] [address] PCP - General Internal Medicine 12/26/21 12/26/21 Karen Ramos MD [address] [place] [address] PCP - General Internal Medicine 11/22/21 12/01/21 Franko Eli MD PCP - General Internal Medicine 12/02/21 12/25/21 Karen Ramos MD [address] [place] [address] PCP - General Internal Medicine 12/27/21 documented as of this encounter
--- OUTSIDE RECORDS SUMMARY | 2024-08-26 18:37 | XMS_ITS | Encounter Summary ---
Author Organization [facility] Address [address] [place] [address] Care Team Providers Care Major Account Representative Name Role Phone Karen Ramos MD Primary Care Prov ider Reason for Visit * Reason Onset Date Comments Prior Authorization 10/01/2023 Sleep study Encounter Details Date Type Department Care Team Description 10/01/2023 Telephone Adult Medicine [address] [address] Gabby Lucero PA-C [address] [place] [address] Prior Authorization (Sleep study ) Social History Tobacco Use Types Packs/Day Years [...] encounter Miscellaneous Notes * Telephone Encounter - Mirian Romero - 10/01/2023 6:45 AM EDT HNE no auth required for home study [id number] Order and benefits faxed to [facility] for scheduling. They will contact pt. Notification letter sent. documented in this encounter Plan of Treatment Not on file documented as of this encounter Visit Diagnoses Not on filedocumented in this encounter Care Teams Major Account Representative Relationship Specialty Start Date End Date Karen Ramos MD [address] [place] [phone] PCP - General Internal Medicine 12/27/21 documented as of this encounter
--- OUTSIDE RECORDS SUMMARY | 2024-08-26 18:37 | XMS_ITS | Encounter Summary ---
Author Organization [facility] Address [address] [place] [address] Care Team Providers Care Assistant Federal Public Defender Name Role Phone Brady Schmidt MD Primary Care Provider Un available Alivia Yañez MD Primary Care Provider [facility] Franko Eli MD Primary Care Provider Karen Urbano MD Primary Care Prov ider Karen Ramos MD Primary Care Prov ider Franko Eli MD Primary Care Provider Karen Urbano MD Primary Care Prov ider Encounter Details Date Type Department Care Team Description 05/01/2016 Walk In Clinic Visit Medical Records [address] [place] [address] Social History Tobacco Use Types Packs/Day Years [...] on filedocumented in this encounter Care Teams Assistant Federal Public Defender Relationship Specialty Start Date End Date Brady Schmidt MD PCP - General Internal Medicine 09/03/15 9 Alivia Yañez MD PCP - General Internal Medicine 01/28/19 05/01/21 Franko Eli MD PCP - General Internal Medicine 05/02/21 11/21/21 Karen Ramos MD [address] [place] [address] PCP - General Internal Medicine 12/26/21 12/26/21 Karen Ramos MD [address] [place] [address] PCP - General Internal Medicine 11/22/21 12/01/21 Franko Eli MD PCP - General Internal Medicine 12/02/21 12/25/21 Karen Ramos MD [address] [place] [address] PCP - General Internal Medicine 12/27/21 documented as of this encounter
--- OUTSIDE RECORDS SUMMARY | 2024-08-26 18:37 | XMS_ITS | Encounter Summary ---
Author Organization [facility] Address [address] [place] [address] Care Team Providers Care Sustainability Engineer Name Role Phone Karen Ramos MD Primary Care Prov ider Encounter Details Date Type Department Care Team Description 10/08/2023 Orders Only Vascular Surgery - [place] [address] [facility] [address] [place] [address] Kadie Rico MD [address] [facility] [address] [place] [address] Venous insufficiency (chronic) (peripheral); Edema Social History Tobacco Use Types Packs/Day Years [...] on file documented as of this encounter Procedures Procedure Name Priority Date/Time Associated Diagnosis Comments VT DUP-SCAN XTR VEINS COMPLETE BILATERAL STUDY Routine 09/03/2023 Venous insufficiency (chronic) (peripheral) Edema documented in this encounter Results * VT DUP-SCAN XTR VEINS COMPLETE BILATERAL STUDY (09/03/2023) 09/03/2023 Kadie Rico MD ULTRASOUND documented in this encounter Visit Diagnoses Diagnosis Venous insufficiency (chronic) (peripheral) Unspecified venous (peripheral) insufficiency Edema documented in this encounter Care Teams Sustainability Engineer Relationship Specialty Start Date End Date Karen Ramos, MD [address] [place] [phone] PCP - General Internal Medicine 12/27/21 documented as of this encounter
--- OUTSIDE RECORDS SUMMARY | 2024-08-26 18:37 | XMS_ITS | Encounter Summary ---
Author Organization [facility] Address [address] [place] [address] Care Team Providers Care Dance Choreographer Name Role Phone Brady Schmidt MD Primary Care Provider Un available Alivia Yañez MD Primary Care Provider Franko Eldridge MD Primary Care Provider Karen Urbano MD Primary Care Prov ider Karen Ramos MD Primary Care Prov ider Franko Eli MD Primary Care Provider Karen Urbano MD Primary Care Prov ider Reason for Visit * Reason Onset Date Comments Prior Authorization 06/07/2017 Encounter Details Date Type Department Care Team Description 06/07/2017 Telephone Gastroenterology - [address] [address] Andre Perez MD Prior Authorization Social History Tobacco Use Types Packs/Day Years [...] encounter Miscellaneous Notes * Telephone Encounter - Kiera Allen - 06/07/2017 2:29 PM EST CCA- no auth required * Telephone Encounter - Imelda Brink - 06/07/2017 1:56 PM EST Pre-auth needed Patient is scheduled for an Colonoscopy on 08/28/17 Patients insurance: Payor: [employer] / Plan: [facility] / Product Type: O [id number] Appointment is with Andre Perez MD Code to process pre-auth for: [id number] Location of procedure: [facility] documented in this encounter Plan of Treatment Not on file documented as of this encounter Visit Diagnoses Not on filedocumented in this encounter Care Teams Dance Choreographer Relationship Specialty Start Date End Date Brady Schmidt MD PCP - General Internal Medicine 09/03/15 9 Alivia Yañez MD PCP - General Internal Medicine 01/28/19 05/01/21 Franko Eli MD PCP - General Internal Medicine 05/02/21 11/21/21 Karen Ramos MD [address] [place] [address] PCP - General Internal Medicine 12/26/21 12/26/21 Karen Ramos MD [address] [place] [address] PCP - General Internal Medicine 11/22/21 12/01/21 Franko Eli MD PCP - General Internal Medicine 12/02/21 12/25/21 Karen Ramos MD [address] [place] [address] PCP - General Internal Medicine 12/27/21 documented as of this encounter
--- OUTSIDE RECORDS SUMMARY | 2024-08-26 18:37 | XMS_ITS | Encounter Summary ---
Author Organization [facility] Address [address] [facility] 7[address] [place] [address] Care Team Providers Care Info Analyst Name Role Phone Jef Guzman MD Primary Care Provider Reason for Visit * Reason Comments Med Refill Encounter Details Date Type Department Care Team (Late st Contact Info) Description 09/12/2022 Refill [facility] ADULT DENTAL [address] [place], [place] [phone] Arsh Gilliland DDS [address] [place], [place] [phone] Dental caries on smooth surface limited to enamel Social History Tobacco Use Types Packs/Day Years Used Date Smoking Tobacco: Never Passive Smoke Exposure: Never Smokeless Tobacco: Never Alcohol Use Standard Drinks/Week Comments Never 0 (1 standard drink = 0.6 oz pur e alcohol) Comments Unknown Sex and Gender Information Value Date Recorded Sex Assigned at Female 03/27/2022 10:28 AM EDT Legal Sex Female 10:28 AM EDT Gender Identity Female 03/27/2022 10:28 AM EDT Sexual Orientation Straight 03/27/2022 10 :28 AM EDT documented as of this encounter Miscellaneous Notes * Telephone Encounter - Arsh Gilliland DDS - 09/25/2022 3:58 PM EDT Approving, but needs appt for additional refills. documented in this encounter Plan of Treatment Upcoming Encounters Date Type Department Care Team (Late st Contact Info) Description 09/09/2024 9:30 AM EDT Office Visit [facility] MED [facility] P[facility] [address] [place] [address] Jef Guzman MD [address] [place] [address] 09/10/2024 2:30 PM EDT Office Visit [facility] ADULT DENTAL [address] [place] [address] Ada Rahman, JOHANS [address] [place] [address] 02/23/2025 1:00 PM EDT Office Visit [facility] ADULT DENT[facility] [address] [place] [address] Gunjan Hardwick documented as of this encounter Visit Diagnoses Diagnosis Dental caries on smooth surface limited to enamel documented in this encounter Care Teams Info Analyst Relationship Specialty Start Date End Date Jef Guzman MD [address] [place] [address] PCP - General Internal Medicine 05/02/24 documented as of this encounter
--- OUTSIDE RECORDS SUMMARY | 2024-08-26 18:37 | XMS_ITS | Clinical Summary ---
Author Organization [employer] [facility] Address [address] [place] [address] Care Team Providers Care Judge'S Clerk Name Role Phone Jef Guzman MD Primary Care Provider Allergies Active Allergy Reactions Criticality Noted Date Comments Atorvastatin Cough 08/23/2016 Medications triamterene-hyd roCHLOROthiazid e (Dyazide) 37.5-25 MG capsule Take 1 capsule by mouth at bed time. Active simvastatin (Zocor) 10 MG tablet Take 1 tablet by mouth at bed time. Active meclizine (Antivert) 25 MG tablet Take 1 tablet by mouth every 8 (eight) hours. Active levothyroxine (Tirosint) 50 MCG capsule Take 1 capsule by mouth at bed time. Active ibuprofen 800 MG tablet Take 1 tablet by mouth every 8 (eight) hours. 5 Active alendronate-cho lecalciferol (Fosamax Plus D) 70-2800 MG-UNIT tablet Take 1 tablet by mouth once a week. Active Acetaminophen (Mapap) 500 MG capsule Take 2 capsules by mouth every 6 (six) hours. Active Acetaminophen (Pain Reliever) 167 MG/5ML liquid take 2 capsule by oral route every 6 hours as needed Active Calcium Carb-Cholecalci ferol (SM Calcium 500/Vitamin D3) 500-10 MG-MCG tablet Active PreviDent 5000 Booster Plus 1.1 % pasteIndication s:Dental caries on smooth surface limited to enamel APPLY A THIN RIBBON OF PASTE AND BRUSH THOROUGHLY TWICE DAILY 100 mL 3 Active Additional Information Patient not taking.Reported on 08/20/2024 albuterol 108 (90 Base) MCG/ACT inhaler Inhale 2 puffs every 4 (four) hours if needed. 4 Active amLODIPine (Norvasc) 5 MG tablet Take 5 mg by mouth Once per day. 4 Active cyclobenzaprine (Flexeril) 5 MG tablet Take 5 mg by mouth if needed in the morning and at bedtime. 4 Active loratadine (Claritin) 10 MG tablet Take 10 mg by mouth Once per day. 4 Active melatonin 5 MG tabletIndicatio ns:Primary insomnia Take 1 tablet (5 mg) by mouth Once per day. 90 tablet 3 4 Active triamcinolone (Kenalog) 0.1 % creamIndication s:Venous stasis dermatitis Apply topically if needed in the morning and at bedtime (pain and swelling). 30 g 2 4 Active Active Problems Problem Noted Date Diagnosed Date Primary hypertension 05/02/2024 Arthritis 05/02/2024 Other specified hypothyroidism 05/02/2024 Other osteoporosis without current pathological fracture 05/02/2024 Encounters Date Type Department Care Team Description 08/20/2024 9:00 AM EDT Office Visit [facility] [address] [place] [address] Gunjan Hardwick 07/22/2024 Telephone [facility] [address] [place] [address] Russ Powers 07/04/2024 Telephone [facility] [address] [place] [address] Jef Guzman MD Appointment Request 07/01/2024 9:00 AM EST Office Visit [facility] [address] [place] [address] Ada Rahman DDS 06/11/2024 10:00 AM EST Office Visit [facility] [address] [place] [address] Ada Rahman DDS 06/06/2024 Telephone [facility] [address] [place] [address] Jef Guzman MD recall appt 06/02/2024 10:00 AM EST Clinical Support [facility] [address] [place] [address] Eladia Nolen RN Primary hypertension 06/02/2024 Travel 05/30/2024 3:00 PM EST Office Visit [facility] [address] [place] [address] Ada Rahman DDS 05/30/2024 Telephone [facility] [address] [place] [address] Sherry Nogueira, RN Results 05/29/2024 Telephone [facility] [address] [place], [place] [phone] Jef Guzman MD 05/29/2024 Orders Only [facility] [address] [place] [address] Jef Guzman MD Positive colorectal cancer screening using Cologuard test (Primary Dx) from Last 3 Months Immunizations Name Administration Dates Next Due Influenza High-dose Quadrivalent Preservative Fr ee 01/27/2020 Influenza, High Dose Seasonal, Preservative Free 07/25/2021,04/14/2019 Influenza, seasonal, injectable, preservative fr ee 02/21/2017,05/25/2016 Pfizer Covid-19 Vaccine 12+ 03/10/2021 Pneumococcal Conjugate PCV 7 06/14/2022 Pneumococcal Polysaccharide PPSV23 04/14/2019, Tdap 05/25/2016 Family History Medical History Relation Name Comments Hypertension Brother Cirrhosis Father Diabetes type II Father Hypertension Mother Relation Name Status Comments Brother Father Mother Social History Tobacco Use Types Packs/Day Years Used Date Smoking Tobacco: Never Passive Smoke Exposure: Never Smokeless Tobacco: Never Tobacco Cessation:Counseling Given: Not Answered Alcohol Use Standard Drinks/Week Comments Never 0 [...] Orientation Straight 03/27/2022 10 :28 AM EDT Last Filed Vital Signs Vital Sign Reading Time Taken Comments Blood Pressure 128/88 06/02/2024 10:00 AM EST Pulse 88 06/02/2024 10:00 AM EST Temperature 36.9 ??C (98.4 ??F) 05/02/2024 2:10 PM ES T Respiratory Rate 20 05/02/2024 2:10 PM EST Oxygen Saturation 99% 05/02/2024 2:10 PM EST Inhaled Oxygen Concentration - - Weight 92.1 kg (203 lb) 05/02/2024 2:10 PM EST Height 159.7 cm (5' 2.89 ) 05/02/2024 2:10 PM ES T Body Mass Index 36.08 05/02/2024 2:10 PM EST Plan of Treatment Upcoming Encounters Date Type Department Care Team (Late st Contact Info) Description 09/09/2024 9:30 AM EDT Office Visit [facility] [address] [place], [place] [phone] Jef Guzman MD [address] [place] [address] 09/10/2024 2:30 PM EDT Office Visit [facility] [address] [place], [place] [phone] Ada Rahman, DDS [address] [place] [address] 02/23/2025 1:00 PM EDT Office Visit [facility] [address] [place], [place] [phone] Gunjan Hardwick Health Maintenance Due Date Last Done Comments CT Colonography 1952 Colonoscopy 1952 FIT 1952 FOBT 1952 Sigmoidoscopy 1952 Zoster Vaccines (1 of 2) 2002 RSV Patients and Patients Aged 60 years or older (1 - Risk 60-74 years 1-dose series) 2012 Depression Monitoring (PHQ-9) 10/31/2024 05/02/2024, 05/02/2024 Influenza Vaccine (#1) 2024 2, 07/25/2021, 01/27/2020, Additional history exists Postponed from 01/27/2024 (Patient Refused) Dental Oral Exam 02/21/2025 08/20/2024, 06/29/2022 Dental Prophylaxis 02/21/2025 08/20/2024, 1 , 06/29/2022 Dental X-Ray: Bitewings 02/26/2025 02/26/2024 Alcohol/Substance Use Screening 05/02/2025 05/02/2024 COVID-19 Vaccine ( season) 2025 03/10/2021, 09/18/2020, 08/24/2020 Postponed from 01/27/2024 (Patient Refused) Depression Screening 05/02/2025 05/02/2024, 05/02/20 Pneumococcal Vaccine: 50+ Years (2 of 2 - PCV) 05/02/2025 06/14/2022, 06/14/2022, 04/14/2019, Additional history exists Postponed from 06/14/2023 (Patient Refused) SDOH Screening 05/02/2025 05/02/2024 Tobacco Screening 08/20/2025 08/20/2024 DTaP/Tdap/Td Vaccines (2 - Td or Tdap) 05/25/2026 05/25/2016 Mammogram 07/15/2026 07/15/2024, 07/15/2024 Dental X-Ray: Full Mouth 02/26/2027 02/26/2024 Colorectal Cancer Screening 05/23/2027 FIT DNA/Cologuard 05/23/2027 05/23/2024 Lipid Panel 05/15/2029 05/15/2024 Hepatitis C Screening Completed 05/15/2024 HIB Vaccines Aged Out No longer eligi [...] patient's age to complete this topic Meningococcal Vaccine Aged Out No sara chika eligible based on patient's age to complete this topic RSV under 20 months Aged Out No longe r eligible based on patient's age to complete this topic Rotavirus Vaccines Aged Out No longer eligible based on patient's age to complete this topic Procedures Procedure Name Priority Date/Time Associated Diagnosis Comments COMPREHENSIVE PERIODONTAL EVALUATION - NEW OR ESTABLISHED PATIENT Routine 08/20/2024 9:00 AM EDT PERIODIC ORAL EVALUATION - ESTABLISHED PATIENT Routine 08/20/2024 9:00 AM EDT 20 INTRAORAL - PERIAPICAL EACH ADDITIONAL RADIOGRAPHIC IMAGE Routine 08/20/2024 9:00 AM EDT 17 INTRAORAL - PERIAPICAL FIRST RADIOGRAPHIC IMAGE Routine 08/20/2024 9:00 AM EDT ORAL HYGIENE INSTRUCTIONS Routine 08/20/2024 9:00 AM EDT CASE PRESENTATION, DETAILED AND EXTENSIVE TREATMENT PLANNING Routine 08/20/2024 9:00 AM EDT PROPHYLAXIS - ADULT Routine 08/20/2024 9 :00 AM EDT 6 PFM CROWN Routine 08/20/2024 12:00 AM EDT 5 FIXED PARTIAL DENTURE - PONTIC Routine 08/20/2024 12:00 AM EDT 17 RESIN-BASED COMPOSITE - 3 SURF, POSTERIOR Routine 07/01/2024 9:00 AM EST 20 DO RESIN-BASED COMPOSITE - 2 SURF, POSTERIOR Routine 07/01/2024 9:00 AM EST 12 CROWN - PORCELAIN/CERAMIC Routine 06/11/2024 10:00 AM EST CROWN PREP Routine 05/30/2024 3:00 PM EST LAB COLOGUARD?? COLON CANCER SCREEN Routine 05/23/2024 8:30 AM EST Screening for colon cancer HEPATITIS C AB W/REFL TO HCV RNA, QN, PCR Routine 05/15/2024 8:12 AM EST Primary hypertension Arthritis LIPID PANEL, STANDARD Routine 05/15/2024 8:12 AM EST Primary hypertension Arthritis INTRAORAL - COMPLETE SERIES OF RADIOGRAPHIC IMAGES Routine 02/26/2024 10:00 AM EDT from Last 3 Months or Most Recently Relevant to Health Maintenance Results * (ABNORMAL) Cologuard?? colon cancer screening (05/23/2024 8:30 AM EST) Cologuard Result Positive( A) Negative 05/28/2024 2:39 PM EST [facility] (CLIA #:[id number]) Comment: POSITIVE TEST RESULT. A positive Cologuard result should be followed with a colonoscopy or visual examination of the colon. The normal value (reference range) for this assay is negative. TEST DESCRIPTION: Composite algorithmic analysis of stool DNA-biomarkers with hemoglobin immunoassay. ?? Quantitative values of individual biomarkers are not reportable and are not associated with individual biomarker result reference ranges. Cologuard is intended for colorectal cancer screening of adults of either sex, 45 years or older, who are at average-risk for colorectal cancer (CRC). Cologuard has been approved for use by the U.S. FDA. The performance of Cologuard was established in a cross sectional study of average-risk adults aged 50-84. Cologuard performance in patients ages 45 to 49 years was estimated by sub-group analysis of near-age groups. Colonoscopies performed for a positive result may find as the most clinically significant lesion: colorectal cancer [4.0%], advanced adenoma (including sessile serrated polyps greater than or equal to 1cm diameter) [20%] or non- advanced adenoma [31%]; or no colorectal neoplasia [45%]. These estimates are derived from a prospective cross-sectional screening study of 10,000 individuals at average risk for colorectal cancer who were screened with both Cologuard and colonoscopy. (Esdras Laura al, N Engl J Med 2014;370(14):0059-1502.) Cologuard may produce a false negative or false positive result (no colorectal cancer or precancerous polyp present at colonoscopy follow up). A negative Cologuard test result does not guarantee the absence of CRC or advanced adenoma (pre-cancer). The current Cologuard screening interval is every 3 years. ([place] [employer] and [place].S. Multi-Society Task Force). Cologuard performance data in a 10,000 patient pivotal study using colonoscopy as the reference method can be accessed at the following location: www.[email or web address]/results. Additional description of the Cologuard test process, warnings and precautions can be found at www.cologuard.com. Stool specimen (specimen) 05/23/2024 8:30 AM EST 05/24/2024 12:04 PM EST us Jef Guzman MD LAB MOLECULAR DIAGNOSTICS O RDERABLES Final Result [facility] (CLIA #:[id number]) [address] [place] [address], * Hepatitis C Antibody with Reflex to HCV, RNA, Quantitative, Real-Time PCR (05/15/2024 8:12 AM EST) Hepatitis C Antibody Nonreactive Nonreactive [facility] Comment:Antibodies to HCV no t detected; does not exclude early acuteHCV infection. Blood Venous blood specimen / Unknown 05/15/2024 8:12 AM EST 05/15/2024 2:28 PM EST us Jef Guzman MD LAB BLOOD ORDERABLES Final Result Performing Organization Address [facility]/ZIP Co de Phone Number [facility] [address] [place] [address] [phone] * Lipid Panel, Standard (05/15/2024 8:12 AM EST) Triglycerides 110 <150 mg/dL [facility] Comment:Desirable Triglyceri de: less than 150 mg/dLBorderline High Triglyceride 150-199 mg/dLHigh Triglyceride: 200-499 mg/dLVery High Triglyceride: greater than or equal to 5OO mg/dL Cholesterol 139 <200 mg/dL [facility] Comment:Desirable Cholestero l: less than 200 mg/dLBorderline High Cholesterol: 200-239 mg/dLHigh Cholesterol: greater than 239 mg/dL LDL Cholesterol Calculated 71 <100 mg/dL [facility] Comment:Desirable LDL: less than 100 mg/dLNear Optimal/Above Optimal LDL: 110- 129 mg/dLBorderline High LDL: 130-159 mg/dLHigh LDL: 160-189 mg/dLVery High LDL: greater than or equal to 190 mg/dL HDL Cholesterol 46 >40 mg/dL [facility] Comment:Desirable HDL: great er than 40 mg/dL Note: This HDL assay may give artificially low results in patients with liver disease. Blood Venous blood specimen / Unknown 05/15/2024 8:12 AM EST 05/15/2024 2:28 PM EST us Jef Guzman MD LAB BLOOD ORDERABLES Final Result Performing Organization Address [facility]/ZIP Co de Phone Number [facility] [address] [place] [address] [phone] from Last 3 Months or Most Recently Relevant to Health Maintenance Insurance [facility] MEDICARE REPLACEMENT HS FULL DENTAL-[facility] MEDICAID STAND ADULT DENTAL - [facility] Care Teams Judge'S Clerk Relationship Specialty Start Date End Date Jef Guzman MD [address] [place] [id number] PCP - General Internal Medicine 05/02/24
== END 2024-08-26 18:25 | disposition home or self-care (01) ==
PROVIDERS: PCP Internal Medicine; Referring Provider Internal Medicine; Visit Provider Nurse Practitioner Family
DX: Z01.818 Encounter for other preprocedural examination (principal); Z12.11 Encounter for screening for malignant neoplasm of colon; R19.5 Other fecal abnormalities
CPT/HCPCS: 99024

== ENCOUNTER → 2024-08-26 15:50 | Outpatient (BNVA) | payer MEDICARE, SELFPAY | PROVIDERS: Visit Provider Nurse Practitioner Family | DX: R19.5 Other fecal abnormalities (principal) | CPT/HCPCS: 99212 ==

== ENCOUNTER 2024-12-03 14:04 | Outpatient (REF) | payer MEDICARE, SELFPAY ==
--- OUTSIDE RECORDS SUMMARY | 2024-12-03 14:47 | XMS_ITS | Encounter Summary ---
Author Organization [employer] [facility] Address [address] [place] [address] [address], [place] [address] Care Team Providers Care Cell Tower Climber Name Role Phone Jef Guzman MD Primary Care Provider Encounter Details Date Type Department Care Team (Latest Contact Info) Description 11/03/2020 Abstract [facility] Dental, Provider, DDS Social History Tobacco [...] Care Team (Late st Contact Info) Description 01/30/2025 2:30 PM EDT Office Visit [facility] [address] [place] [address] Jef Guzman MD [address] [place] [address] 02/23/2025 1:00 PM EDT Office Visit [facility] [address] [place] [address] Gunjan Hardwick documented as of this encounter Visit Diagnoses Not on filedocumented in this encounter Care Teams Cell Tower Climber Relationship Specialty Start Date End Date Jef Guzman MD [address] [place] [address] PCP - General Internal Medicine 05/02/24 documented as of this encounter
--- OUTSIDE RECORDS SUMMARY | 2024-12-03 14:47 | XMS_ITS | Clinical Summary ---
Author Organization [facility] [address] [place] [address] [place] [phone] Phone Care Team Providers Care Ground Crew Lines Person Name Role Phone Jef Guzman MD Primary Care Provider [phone] Allergies Active Allergy Reactions Criticality Noted Date Comments Atorvastatin Cough 08/23/2016 Medications albuterol HFA (PROAIR HFA ; PROVENTIL HFA ; VENTOLIN HFA) 90 mcg/actuation inhaler Inhale 2 puffs by mouth every 4 (four) hours if needed for wheezing (cough). 10/18/2023 Active amLODIPine (NORVASC) 5 mg tablet Take 1 tablet (5 mg total) by mouth 1 (one) time each day. 10/10/2023 Active levothyroxine (SYNTHROID, LEVOTHROID) 50 mcg tablet Take 1 tablet (50 mcg total) by mouth 1 (one) time each day. 10/10/2023 Active cyclobenzaprine (FLEXERIL) 5 mg tablet Take 1 Tablet by mouth 2 times daily as needed for Muscle spasms for up to 10 days. 10/10/2023 Active simvastatin (ZOCOR) 20 mg tablet Take 1 tablet (20 mg total) by mouth at bedtime. 10/10/2023 Active loratadine (CLARITIN) 10 mg tablet Take 1 tablet (10 mg total) by mouth 1 (one) time each day. 05/30/2023 Active triamterene-hyd roCHLOROthiazid e (MAXZIDE-25) 37.5-25 mg per tablet TAKE 1 TABLET BY MOUTH DAILY 20 tablet 07/29/2024 Active Active Problems Problem Noted Date Diagnosed Date Intermittent asthma 07/07/2020 Internal hemorrhoids 06/07/2017 Depression 11/23/2016 Melasma 11/23/2016 Insomnia 05/25/2016 Overview (03/03/2024): F/u with [facility]N Diverticulosis 09/14/2015 Allergic rhinitis 09/10/2015 Hyperlipidemia 09/10/2015 Hypertension 09/10/2015 Hypothyroidism 09/10/2015 Osteoporosis 09/10/2015 Overview (03/03/2024): DEXA 02/18/15 Lumbar T score -2.8, Femur T score 0.3 Encounters Date Type Department Care Team Description 10/29/2024 11:30 AM EDT Office Visit Vascular Surgery [facility] [address] [place] [address] Kadie Rico MD Varicose veins of bilateral lower extremities with pain (Primary Dx) 10/07/2024 10:45 AM EDT Ancillary Procedure [facility] [address] [facility] [address] [place] [address] Varicose veins of left lower extremity with pain 2024 8:00 AM EDT Procedure visit Vascular Surgery [facility] [address] [place] [address] Ok Sosa MD Varicose veins of left lower extremity with pain 09/11/[address] [facility] [address] [place] [address] Desire Salvador MA In-Office Procedure from Last 3 Months Immunizations Name Administration Dates Next Due Influenza trivalent, 0.5mL ( Fluzone High-dose) 65yo and older 07/25/2021,01/27/2020,04/14/2019 Influenza trivalent, with pr eservative (Fluzone; Afluria) 6mo and older 02/21/2017,05/25/2016 Influenza, Unspecified 02/20/2017 Pfizer SARS-CoV-2 COVID-19, mRNA, LNP-S, preservative free 03/10/2021 Pneumococcal conjugate 20 va lent (Prevnar 20, PCV 20) 2mo and older 06/14/2022 Pneumococcal polysaccharide 23 valent (Pneumovax 23) 2yo and older 04/14/2019,03/29/2018 Tdap Tetanus diptheria acell ular pertussis (Boostrix; Adacel) 7yo and older 05/25/2016 Surgical History Surgery Date Site/Laterality Comments HYSTERECTOMY PROCEDURE: HISTORICAL HYSTERECTOMY; COMMENT: fibroids OTHER SURGICAL HISTORY Bilateral PROCEDURE: [place] STAB PHLEBT VARICOSE VEINS 1 XTR > 20 INCS SECTION PROCEDURE: HISTORICAL DELIVERY COLONOSCOPY 08/05/2007 PROCEDURE: HISTORICAL COLONOSCOPY; COMMENT: [facility]; small tubular adenoma from the right colon, second small polyp from the right colon was lost. COLONOSCOPY 04/17/2011 PROCEDURE: HISTORICAL COLONOSCOPY; COMMENT: [facility]; no polyps. COLONOSCOPY 08/28/2017 PROCEDURE: HISTORICAL [...] Value Date Recorded Sex Assigned at Female 11/11/2024 3:53 PM EDT Legal Sex Female 12:48 PM EST Gender Identity Female 11/11/2024 3:54 PM EDT Sexual Orientation Straight 11/11/2024 3: 54 PM EDT Obstetrics History Para Term AB IAB SAB Ectopic Multiple Livin g Live Births 2 2 2 2 Date Outcome GA Total Labor Labor/2nd/3rd Weight Sex Type Anes PTL Ivone A1 A5 Name Clin Term Term Last Filed Vital Signs Vital Sign Reading Time Taken Comments Blood Pressure 140/80 10/29/2024 11:15 AM EDT Pulse 100 10/29/2024 11:15 AM EDT Temperature - - Respiratory Rate 16 10/29/2024 11:15 AM EDT Oxygen Saturation - - Inhaled Oxygen Concentration - - Weight 95.3 kg (210 lb) 10/29/2024 11:15 AM EDT Height 162.6 cm (5' 4 ) 10/29/2024 11:15 AM EDT Body Mass Index 36.05 10/29/2024 11:15 AM EDT Plan of Treatment Upcoming Encounters Date Type Department Care Team (Late st Contact Info) Description 12/04/2024 8:00 AM EDT Appointment [facility] CT Scan [address] [place] [id number] 10/27/2025 12:00 PM EDT Ancillary Procedure [facility] [address] [facility] [address] [place] [address] 11/04/2025 9:30 AM EDT Office Visit Vascular Surgery - [place] [address] [facility] [address] [place] [address] Kadie Rico MD [address] [place] [address] Health Maintenance Due Date Last Done Comments Zoster Vaccines (1 of 2) 2002 RSV Immunization Adult Patients (1 - Risk 60-74 years 1-dose series) 2012 Medicare Annual Wellness Visit 05/06/2022 Social Influencers of Health Screening 05/06/2022 COVID-19 Vaccine ( season) 2024 03/10/2021, 09/18/2020, 08/24/2020 Influenza Vaccine (#1) 2025 , 01/27/2020, 04/14/2019, Additional history exists Falls Risk Assessment 01/28/2025 01/29/2024 Hypertension/CHF/CAD Annual BMP Blood Test 05/15/2025 05/15/2024, 06/12/2023 Depression Screening 10/16/2025 10/16/2024, 01/29/20 24 DTaP,Tdap,and Td Vaccines (2 - Td or [...] age to complete this topic Meningococcal B Vaccine Aged Out No l onger eligible based on patient's age to complete this topic RSV Immunization Patients Under 20 months Aged Out No longer eligible based on patient's age to complete this topic Varicella Vaccines Aged Out No longer eligible based on patient's age to complete this topic Procedures Procedure Name Priority Date/Time Associated Diagnosis Comments VAS US DUPLEX ENDOVENOUS ABLATION LOWER VENOUS LEFT Routine 10/07/2024 10:30 AM EDT Varicose veins of left lower extremity with pain MG MAMMO DIGITAL SCREENING W LAMONT BILAT [...] Recently Relevant to Health Maintenance Results * Vascular US duplex endovenous ablation lower venous left (10/07/2024 10:30 AM EDT) Anatomical Region Laterality Modality Vascular Ultrasound Narrative 10/16/2024 1:46 PM EDT Left: 1. The left lower extremity veins are compressible and there is no evidence of DVT in the left lower extremity deep venous system. 2. Successful EVLT of the left GSV from mid thigh to left upper calf. The GSV is patent in the left mid and lower calf. 3. The SSV has no significant reflux. Left Lower Venous No evidence of deep vein thrombosis in the common femoral, deep femoral, proximal femoral, mid femoral, distal femoral, or popliteal veins of the left leg. The vessels showed compressibility. Interrogation showed phasic and spontaneous Doppler signals. The left great saphenous vein demonstrates successful ablation from the mid thigh at a large branch through the upper calf. The left greater saphenous is patent in the mid and distal calf. No evidence of superficial thrombophlebitis in the proximal small saphenous vein of the left leg. The vessel showed compressibility. Interrogation showed phasic and spontaneous Doppler signals. Director Television News Details A duke scale, color and doppler analysis ultrasound was performed. During the study longitudinal and transverse views were obtained. Pulsed wave doppler was performed. us Ok Sosa MD CV VASCULAR PROCEDURES Final Re sult * MG Mammo Digital Screening w Lamont bilat (07/15/2024 8:14 AM EST) Anatomical Region Laterality Modality Breast Bilateral Mammography 07/15/2024 2:39 PM EST Impressions 07/15/2024 2:40 PM EST No mammographic evidence of malignancy. BREAST DENSITY: B - There are scattered areas of fibroglandular density. BI-RADS CATEGORY: 1 - NEGATIVE RECOMMENDATION: Screening bilateral mammogram is recommended in 1 year. MAMMO LOCATION: [facility], [address] [place] [address], [phone], . -------- FINAL REPORT -------- Dictated By: Basia Altman Dictated Date: 07/15/2024 14:39 ET Assigned Physician: Basia Altman Reviewed and Electronically Signed By: Basia Altman Signed Date: 07/15/2024 14:40 ET Workstation ID: [id number] Transcribed By: Self Edit Transcribed Date: 07/15/2024 [...] is recommended in 1 year. MAMMO LOCATION: [facility], [address] [place] [address], [phone], . -------- FINAL REPORT -------- Dictated By: Basia Altman Dictated Date: 07/15/2024 14:39 ET Assigned Physician: Basia Altman Reviewed and Electronically Signed By: Basia Altman Signed Date: 07/15/2024 14:40 ET Workstation ID: [id number] Transcribed By: Self Edit Transcribed Date: 07/15/2024 14:39 ET Result [facility] Karen Love MD IMG BI PROCEDURES Final Result * Falls Risk Assessment (01/29/2024) [facility] Falls Risk Assessment Abstracted Result [facility] HEALTH MAINTENANCE Final Result * Depression Screening (01/29/2024) Pathologist [facility] Depression Screening Abstracted Result [facility] HEALTH MAINTENANCE Final Result * Annual BMP Blood Test (06/12/2023) Pathologist [facility] Annual BMP Blood Test Abstracted Result [facility] Final Result * Lipid panel (06/12/2023) [facility] LDL/HDL Ratio 3 0 - 4 Triglycerides 129 0 - 150 mg/dL Cholesterol 151 0 - 200 mg/dL HDL 49 >=40 mg/dL LDL Cholesterol 77 0 - 100 mg/dL Blood Venous blood specimen / Unknown us Historical Provider LAB BLOOD ORDERABLES Lyssa l Result * DXA BONE DENSITY STUDY 1+ SITS AXIAL SKEL (09/22/2021 9:14 AM EDT) Anatomical Region Laterality Modality Bone Densitometr y 07/25/2021 8:52 AM EST Narrative 09/23/2021 3:20 PM EDT BONE DENSITY Lumbar Spine T-score is -1.7 [...] compared to most recent bone density examination Confidence level is +/-95%. Impression: Based on the World Health Organization criteria, Chintan Browning should be classified as having osteopenia. This patient is already being treated for osteoporosis. The [facility] Department of Internal Medicine recommends using [...] Based on the World Health Organization criteria, Chintan Browning should beclassified as having osteopenia. This patient is already being treated forosteoporosis. The [facility] Department of Internal Medicine recommendsusing National [...] of fracture risk by FRAX. Gabby MIX IMFiliberto DXA PROCEDURES Final Result * Colonoscopy (08/28/2017) Colonoscopy Abstracted, Positive Anatomical Region Laterality Modality Other Historical Provider HEALTH MAINTENANCE Final Result * Hepatitis C Screening (08/23/2016) Hepatitis C Screening Abstracted us Historical Provider HEALTH MAINTENANCE Final Result from Last 3 Months or Most Recently Relevant to Health Maintenance Insurance [employer] MEDICARE MEDICAID - [place] Care Teams Ground Crew Lines Person Relationship Specialty Start Date End Date Jef Guzman MD [address] [place] [address] PCP - General Internal Medicine 08/13/24
[2024-12-03 16:33] LABS: Anion Gap 15 (12-20); Blood Urea Nitrogen 17 mg/dL (9-16); Calcium 9.8 mg/dL (8.4-10.2); Carbon Dioxide 27 mmol/L (22-29); Chloride 101 mmol/L (96-108); Estimated Glomerular Filt Rate > 60; Potassium 3.6 mmol/L (3.3-5.1); Sodium 139 mmol/L (135-145)
== END 2024-12-03 14:05 | disposition home or self-care (01) ==
LOC: HO.CHCLDS 14:04
PROVIDERS: Visit Provider Internal Medicine
DX: R10.32 Left lower quadrant pain (principal)
CPT/HCPCS: 36415; 80048

== ENCOUNTER 2025-03-16 15:13 | Outpatient (REF) | payer OTHER, SELFPAY ==
--- OUTSIDE RECORDS SUMMARY | 2025-03-16 14:30 | XMS_ITS | Encounter Summary ---
Author Organization [facility] Address [address] [place] [address] Care Team Providers Care Forestry Crew Chief Name Role Phone Jef Guzman MD Primary Care Provider Reason for Referral * Imaging (Routine) - Pending Review Specialty Diagnoses / Procedures Referred By Sue velez Referred To Contact Radiology Diagnoses Other dysphagia Procedures FL Esophagus Barium Swallow Jef Guzman MD [address] [place] [phone] Phone: tel: fax: Referral ID Status Reason Start Date Expiration Date Visits Requested Visits Authorized [id number] Pending Review Perform Procedure 03/16/2026 1 1 Reason for Visit * Reason Comments Hypertension Encounter Details Date Type Department Care Team ([facility] st Contact Info) Description 03/16/2025 2:30 PM EDT Office Visit [facility] [address] [place] [address] Jef Guzman MD [address] [place] [address] Primary hypertension (Primary Dx); Primary insomnia; Primary insomnia; Other dysphagia; Telogen effluvium; Nevus Social History Tobacco Use Types Packs/Day Years [...] Answer Date Recorded Patient Health Questionnaire-9 Score 6 10/16/2024 Patient Health Questionnaire-9 Score 6 10/16/2024 Last PHQ-9: Questionnaire Data Not on file 0 10/16/2024 Housing Stability Answer Date Recorded What is [...] Answer Date Recorded Patient Health Questionnaire-2 Score 2 10/16/2024 Internet Access Answer Date Recorded Internet Access Q1 Yes 05/02/2024 Internet Access Q2 Not on file 05/02/2024 Comments Unknown Sex and Gender Information Value Date Recorded Sex Assigned at Female 03/27/2022 10:28 AM EDT Legal Sex Female 10:28 AM EDT Gender Identity Female 03/27/2022 10:28 AM EDT Sexual Orientation Straight 03/27/2022 10 :28 AM EDT documented as of this encounter Last Filed Vital Signs Vital Sign Reading Time Taken Comments Blood Pressure 136/85 03/16/2025 2:31 PM EDT Pulse 93 03/16/2025 2:31 PM EDT Temperature - - Respiratory Rate 19 03/16/2025 2:31 PM EDT Oxygen Saturation 98% 03/16/2025 2:31 PM EDT Inhaled Oxygen Concentration - - Weight 93.9 kg (207 lb) 03/16/2025 2:31 PM EDT Height 161 cm (5' 3.39 ) 03/16/2025 2:31 PM EDT Body Mass Index 36.22 03/16/2025 2:31 PM EDT documented in this encounter Progress Notes * Jef Guzman MD - 03/16/2025 2:30 PM EDT ALEJANDRINA Jules is a 74 y.o. female who presents for Hypertension. Hypertension Pertinent negatives include no shortness of breath. History of hypertension. Mrs. Celestina Jules has been checking her blood pressure at home regularlyand her blood pressure is above goal. She checks the blood pressure fasting before taking her bloodpressure medication. Denies any headache or blurry vision. History of hair loss for the last 2 weeks described as an increased shedding. Patient also feels like her hair is breaking off. She is status post endovascular radiofrequency ablation of the left greater saphenous vein at [facility] on 2024. Mrs. Celestina Jules is concerned about the small hyperpigmented lesion of the right tenriism area noted a few months ago. Not increasing in size. Problem List[1] Allergies[2] Medications Ordered Prior to Encounter[3] Review of Systems Constitutional: Negative for appetite change, chills and diaphoresis. Eyes: Negative for photophobia, pain and redness. Respiratory: Negative for cough and shortness of breath. Cardiovascular: Negative for leg swelling. Gastrointestinal: Negative for anal bleeding, blood in stool and constipation. Skin: Skin lesion OBJECTIVE Vitals: 03/16/25 1431 BP: 136/85 BP Location: Left arm Patient Position: Sitting BP Cuff Size: Adult long Pulse: 93 Resp: 19 SpO2: 98% Weight: 207 lb (93.9 kg) Height: 5' 3.39 (1.61 m) Physical Exam Constitutional: General: She is not in acute distress. Appearance: Normal appearance. She is not ill-appearing, toxic-appearing or diaphoretic. Cardiovascular: Rate and Rhythm: Normal rate. Pulmonary: Effort: Pulmonary effort is normal. Skin: Comments: Pulled hair test positive Scalp is noninflammatory, nonscaly, no erythema. 3 x 3 mm hyperpigmented papule w/ homogenous color of the right tenriism Neurological: General: No focal deficit present. Mental Status: She is alert. Psychiatric: Mood and Affect: Mood normal. Assessment/Plan Assessment/Plan Diagnoses and all orders for this visit: Primary hypertension Comments: BP is at goal No change in medication for now. Primary insomnia Comments: Appropriate sleep hygiene discussed Pt is to be more active during the daytime. Orders: - melatonin 5 MG tablet; Take 2 tablets (10 mg) by mouth Once per day. Primary insomnia Comments: Sleep hygiene as discussed Trial of melatonin. Orders: - melatonin 5 MG tablet; Take 2 tablets (10 mg) by mouth Once per day. Other dysphagia - FL Esophagus Barium Swallow; Future Patient will be contacted with the results of the barium swallow Telogen effluvium - TSH W/Reflex to FT4; Future - CBC auto differential; Future - Minoxidil (Minoxidil for Women) 5 % foam; To the apply to the scalp daily at bedtime. Nevus Comments: Reassurance Follow up in 2-3 months. [1] Patient Active Problem List Diagnosis Primary hypertension Arthritis Other specified hypothyroidism Other osteoporosis without current pathological fracture SNEHA (generalized anxiety disorder) [2] Allergies Allergen Reactions Atorvastatin Cough [3] Current Outpatient Medications on File Prior to Visit Medication Sig Dispense Refill Acetaminophen (Mapap) 500 MG capsule Take 2 capsules by mouth every 6 (six) hours. Acetaminophen (Pain Reliever) 167 MG/5ML liquid take 2 capsule by oral route every 6 hours as needed albuterol 108 (90 Base) MCG/ACT inhaler Inhale 2 puffs every 4 (four) hours if needed. alendronate-cholecalciferol (Fosamax Plus D) 70-2800 MG-UNIT tablet Take 1 tablet by mouth once a week. amLODIPine (Norvasc) 5 MG tablet Take 1 tablet (5 mg) by mouth Once per day. 90 tablet 3 Blood Pressure kit To check the BP daily 1 kit 0 Calcium Carb-Cholecalciferol (SM Calcium 500/Vitamin D3) 500-10 MG-MCG tablet cyclobenzaprine (Flexeril) 5 MG tablet Take 5 mg by mouth if needed in the morning and at bedtime. IBU 800 MG tablet TAKE ONE TABLET ONCE DAILY NEEDED MILD PAIN 30 tablet 2 levothyroxine (Synthroid, Levoxyl) 50 MCG tablet TAKE ONE TABLET EVERY MORNING BEFORE BREAKFAST 30 tablet 3 loratadine (Claritin) 10 MG tablet Take 10 mg by mouth Once per day. meclizine (Antivert) 25 MG tablet Take 1 tablet by mouth every 8 (eight) hours. melatonin 5 MG tablet Take 1 tablet (5 mg) by mouth Once per day. 90 tablet 3 PreviDent 5000 Booster Plus 1.1 % paste APPLY A THIN RIBBON OF PASTE AND BRUSH THOROUGHLY TWICE DAILY (Patient not taking: Reported on 08/20/2024) 100 mL 0 simvastatin (Zocor) 10 MG tablet Take 1 tablet (10 mg) by mouth at bedtime. 30 tablet 11 triamcinolone (Kenalog) 0.1 % cream Apply topically if needed in the morning and at bedtime (pain and swelling). 30 g 2 triamterene-hydroCHLOROthiazide (Dyazide) 37.5-25 MG capsule Take 1 capsule by mouth in the morning. 90 capsule 3 triamterene-hydrochlorothiazide (Maxzide-25) 37.5-25 MG tablet Take 1 tablet by mouth Once per day.30 tablet 11 No current facility-administered medications on file prior to visit. documented in this encounter Plan of Treatment Upcoming Encounters Date Type Department Care Team (Late st Contact Info) Description 05/18/2025 9:00 AM EST Office Visit [facility] MED & PEDS [address] [place] [address] Jef Guzman MD [address] [place] [address] 08/25/2025 8:00 AM EDT Office Visit [facility] ADULT DENTAL [address] [place] [address] Fausto Guzman Scheduled Orders Name Type Priority Associated Diagnoses Orde r Schedule FL Esophagus Barium Swallow Imaging Routine Other dysphagia Expected: 03/16/2025, Expires: 03/16/2026 documented as of this encounter Procedures Procedure Name Priority Date/Time Associated Diagnosis Comments TSH W/REFLEX TO FT4 Routine 03/16/2025 3 :16 PM EDT Telogen effluvium CBC WITH AUTO DIFFERENTIAL Routine 03/16/2025 3:16 PM EDT Telogen effluvium documented in this encounter Results * CBC auto differential (03/16/2025 3:16 PM EDT) White Blood Count 7.6 4.8 - 10.8 X10*3/uL [facility] Red Blood Count 4.99 4.20 - 5.50 X10*6/uL [facility] Hemoglobin 13.5 12.0 - 16.0 g/dl [facility] Hematocrit 40.9 37.0 - 47.0 % [facility] Mean Corpuscular Volume 82.0 80.0 - 98.0 fL [facility] Mean Corpuscular Hemoglobin 27.1 27.0 - 33.0 pg [facility] Mean Corpuscular HGB Conc 33.0 31.0 - 35.0 g/dl [facility] Red Cell Distribution Width 13.6 11.0 - 16.0 % [facility] Platelet Count 235 160 - 400 X10*3/uL [facility] Mean Platelet Volume 11.8 9.4 - 12.3 [facility] Neutrophils Percent Auto 58.3 45 - 73 % [facility] Imm Gran Pct Auto 0.3 0.0 - 0.4 % [facility] Lymphocytes Percent Auto 32.6 20 - 40 % [facility] Monocytes Percent Auto 5.9 2 - 11 % [facility] Eosinophils Percent Auto 2.0 0 - 4 % [facility] Basophils Percent Auto 0.9 0 - 2 % [facility] NRBC Pct Auto 0.0 0.0 - 0.2 /100WBC [facility] Neutrophils Absolute Auto 4.4 2.0 - 8.3 x10*3/uL [facility] Imm Gran Abs Auto 0.02 0.00 - 0.03 X10*3/uL [facility] Lymphocytes Absolute Auto 2.5 1.2 - 4.9 X10*3/uL [facility] Monocytes Absolute Auto 0.5 0.1 - 1.2 X10*3/uL [facility] Eosinophils Absolute Auto 0.2 0.0 - 0.4 X10*3/uL [facility] Basophils Absolute Auto 0.1 0.0 - 0.2 X10*3/uL [facility] NRBC Abs Auto 0.000 0.0 - 0.012 X10*3/uL [facility] Blood Venous blood specimen / Unknown 03/16/2025 3:16 PM EDT 03/16/2025 6:20 PM EDT us Jef Guzman MD LAB BLOOD ORDERABLES Final Result Performing Organization Address [facility] Co de Phone Number [facility] [address] [place] [phone] * TSH W/Reflex to FT4 (03/16/2025 3:16 PM EDT) TSH reflex Free T4 2.32 0.32 - 4.0 uIU/mL [facility] Blood Venous blood specimen / Unknown 03/16/2025 3:16 PM EDT 03/16/2025 6:20 PM EDT us Jef Guzman MD LAB BLOOD ORDERABLES Final Result Performing Organization Address [facility] de Phone Number [facility] [address] [place] [phone] documented in this encounter Visit Diagnoses Diagnosis Primary hypertension- Primary Unspecified essential hypertension Primary insomnia Persistent disorder of initiating or maintaining sleep Other dysphagia Telogen effluvium Nevus Benign neoplasm of skin, site unspecified documented in this encounter Additional Health Concerns Assessment Noted Time PHQ-9 Depression Total Score: 6 10/17/19 25 9:10 AM EDT documented as of this encounter Care Teams Forestry Crew Chief Relationship Specialty Start Date End Date Jef Guzman MD [address] [place] [phone] PCP - General Internal Medicine 05/02/24 documented as of this encounter
[2025-03-16 18:23] LABS: MANUAL DIFF FLAG NO
[2025-03-16 18:38] LABS: Hematocrit 40.9 % (37.0-47.0); Hemoglobin 13.5 g/dl (12.0-16.0); Imm Gran Abs Auto 0.02 X10*3/uL (0.00-0.03); Imm Gran Pct Auto 0.3 % (0.0-0.4); Lymphocytes Absolute Auto 2.5 X10*3/uL (1.2-4.9); Mean Corpuscular HGB Conc 33.0 g/dl (31.0-35.0); Mean Corpuscular Hemoglobin 27.1 pg (27.0-33.0); Mean Corpuscular Volume 82.0 fL (80.0-98.0); NRBC Abs Auto 0.000 X10*3/uL (0.0-0.012); NRBC Pct Auto 0.0 /100WBC (0.0-0.2); Platelet Count 235 X10*3/uL (160-400); Red Blood Count 4.99 X10*6/uL (4.20-5.50); White Blood Count 7.6 X10*3/uL (4.8-10.8)
--- OUTSIDE RECORDS SUMMARY | 2025-03-16 19:28 | XMS_ITS | Encounter Summary ---
Author Organization [employer] Address [address] [facility] 7t [place] [address] Care Team Providers Care Procedure Writer Name Role Phone Jef Guzman MD Primary Care Provider [phone] Encounter Details Date Type Department Care Team (Latest Contact Info) Description 03/16/2025 Travel Social History Tobacco Use Types Packs/Day Years [...] Description 05/18/2025 9:00 AM EST Office Visit [facility] PEDS [address] [place] [address] Jef Guzman MD [address] [place] [address] 08/25/2025 8:00 AM EDT Office Visit [facility] AD[facility] [address] [place] [address] Fausto Guzman documented as of this encounter Visit Diagnoses Not on filedocumented in this encounter Additional Health Concerns Assessment Noted Time PHQ-9 Depression Total Score: 6 10/17/19 25 9:10 AM EDT documented as of this encounter Care Teams Procedure Writer Relationship Specialty Start Date End Date Jef Guzman MD [address] [place] [address] PCP - General Internal Medicine 05/02/24 documented as of this encounter
--- OUTSIDE RECORDS SUMMARY | 2025-03-16 19:28 | XMS_ITS | Encounter Summary ---
Author Organization [employer] Address [address] [facility] 7t [place] [address] Care Team Providers Care Lamp Cleaner Street Light Name Role Phone Jef Guzman MD Primary Care Provider Encounter Details Date Type Department Care Team (Late st Contact Info) Description 01/15/2025 Orders Only [facility] MED & PEDS [address] [place], [place] [phone] Jef Guzman MD [address] [place] [address] Social History Tobacco Use Types Packs/Day Years [...] Description 05/18/2025 9:00 AM EST Office Visit [facility] MED & PEDS [address] [place] [address] Jef Guzman MD [address] [place] [address] 08/25/2025 8:00 AM EDT Office Visit [facility] ADULT DENTAL [address] [place] [address] Fausto Guzman documented as of this encounter Visit Diagnoses Not on filedocumented in this encounter Additional Health Concerns Assessment Noted Time PHQ-9 Depression Total Score: 6 10/17/19 25 9:10 AM EDT documented as of this encounter Care Teams Lamp Cleaner Street Light Relationship Specialty Start Date End Date Jef Guzman MD [address] [place] [address] PCP - General Internal Medicine 05/02/24 documented as of this encounter
--- OUTSIDE RECORDS SUMMARY | 2025-03-16 19:28 | XMS_ITS | Encounter Summary ---
Author Organization [employer] Address [address] [facility] 7 [place] [address] Care Team Providers Care Waitress Name Role Phone Jef Guzman MD Primary Care Provider Reason for Visit * Reason Onset Date Comments Chart Prep 03/13/2025 Encounter Details Date Type Department Care Team ([facility] st Contact Info) Description 03/13/2025 Telephone [facility] MED & PEDS [address] [place], [place] [phone] Jef Guzman MD [address] [place], [place] [phone] Chart Prep Social History Tobacco Use Types Packs/Day Years [...] encounter Miscellaneous Notes * Telephone Encounter - Abena Lambert [place] - 03/13/2025 2:44 PM EDT Chart Prep Labs: done Images: done Referrals: appointment pending Vaccines due: Covid, Flu, RSV, and Zoster Screenings: not applicable Overdue care gaps: Tobacco documented in this encounter Plan of Treatment Upcoming Encounters Date Type Department Care Team (Late st Contact Info) Description 05/18/2025 9:00 AM EST Office Visit [facility] MED & PED[facility] [address] [place] [address] Jef Guzman MD [address] [place] [address] 08/25/2025 8:00 AM EDT Office Visit [facility] ADULT DENTAL [address] [place] [address] Fausto Guzman documented as of this encounter Visit Diagnoses Not on filedocumented in this encounter Additional Health Concerns Assessment Noted Time PHQ-9 Depression Total Score: 6 10/17/19 25 9:10 AM EDT documented as of this encounter Care Teams Waitress Relationship Specialty Start Date End Date Jef Guzman MD [address] [place] [address] PCP - General Internal Medicine 05/02/24 documented as of this encounter
--- OUTSIDE RECORDS SUMMARY | 2025-03-16 19:28 | XMS_ITS | Encounter Summary ---
Author Organization [employer] [facility] Address [address] [place] [address] 7[address] [place] [address] Care Team Providers Care Environmental Sampler Name Role Phone Jef Guzman MD Primary Care Provider Reason for Visit * Reason Comments Med Refill Encounter Details Date Type Department Care Team (Late st Contact Info) Description 09/12/2022 Refill [facility] ADULT DENTAL [address] [place], [place] [phone] Arsh Gilliland DDS [address] [place], [place] [phone] Dental caries on smooth surface limited to [...] Description 05/18/2025 9:00 AM EST Office Visit [facility] MED & PEDS [address] [place] [address] Jef Guzman MD [address] [place] [address] 08/25/2025 8:00 AM EDT Office Visit [facility] ADULT DENTAL [address] [place] [address] Fausto Guzman documented as of this encounter Visit Diagnoses Diagnosis Dental caries on smooth surface limited to enamel documented in this encounter Care Teams Environmental Sampler Relationship Specialty Start Date End Date Jef Guzman MD [address] [place] [address] PCP - General Internal Medicine 05/02/24 documented as of this encounter
--- OUTSIDE RECORDS SUMMARY | 2025-03-16 19:28 | XMS_ITS | Encounter Summary ---
Author Organization [employer] Address [address] [facility] 7[address] [place] [address] Care Team Providers Care Team Assembler Name Role Phone Jef Guzman MD Primary Care Provider Reason for Visit * Reason Onset Date Comments Appointment Request 07/04/2024 Encounter Details Date Type Department Care Team (Late st Contact Info) Description 07/04/2024 Telephone [facility] MEDICINE [address] [place] [address] Jef Guzman MD [address] [place], [place] [phone] Appointment Request Social History Tobacco Use Types [...] Upcoming Encounters Date Type Department Care Team ([facility] st Contact Info) Description 05/18/2025 9:00 AM EST Office Visit [facility] MED & PEDS [address] [place] [address] Jef Guzman MD [address] [place] [address] 08/25/2025 8:00 AM EDT Office Visit [facility] ADULT DENTAL [address] [place] [address] Fausto Guzman documented as of this encounter Visit Diagnoses Not on filedocumented in this encounter Additional Health Concerns Assessment Noted Time PHQ-9 Depression Total Score: 17 024 2:59 PM EST documented as of this encounter Care Teams Team Assembler Relationship Specialty Start Date End Date Jef Guzman MD [address] [place] [address] PCP - General Internal Medicine 05/02/24 documented as of this encounter
--- OUTSIDE RECORDS SUMMARY | 2025-03-16 19:28 | XMS_ITS | Encounter Summary ---
Author Organization [employer] [facility] Address [address] [place] [address] Care Team Providers Care Imaging Engineer Name Role Phone Jef Guzman MD Primary Care Provider Encounter Details Date Type Department Care Team (Latest Contact Info) Description 11/03/2020 Abstract [facility] Dental, Provider, DDS Social History [...] 9:00 AM EST Office Visit [facility] MED & PEDS [address] [place] [address] Jef Guzman MD [address] [place] [address] 08/25/2025 8:00 AM EDT Office Visit [facility] ADULT DENTAL [address] [place] [address] Fausto Guzman documented as of this encounter Visit Diagnoses Not on filedocumented in this encounter Care Teams Imaging Engineer Relationship Specialty Start Date End Date Jef Guzman MD [address] [place] [address] PCP - General Internal Medicine 05/02/24 documented as of this encounter
--- OUTSIDE RECORDS SUMMARY | 2025-03-16 19:28 | XMS_ITS | Encounter Summary ---
Author Organization [employer] Address [address] [facility] [address], [place] [address] Care Team Providers Care Wrapper Sizer Name Role Phone Jef Guzman MD Primary Care Provider [phone] Reason for Referral * Imaging (Routine) - Closed Specialty Diagnoses / Procedures Referred By Contariel velez Referred To Contact Radiology Diagnoses Left lower quadrant abdominal pain Procedures CT Abdomen Pelvis w/ Contrast Jef Guzman MD [address] [place] [address] Phone: tel: fax: [address] Phone: tel: fax: Referral ID Status Reason Start Date Expiration Date Visits Re quested Visits Authorized [id number] Closed 11/06/2024 11/06/2025 1 1 Encounter Details Date Type Department Care Team (Late st Contact Info) Description 11/06/2024 Orders Only [facility] MED & PEDS [address] [place] [address] Jef Guzman MD [address] [place] [address] Left lower quadrant abdominal pain (Primary Dx); Dyslipidemia; Arthritis Social History Tobacco Use Types Packs/Day Years [...] Upcoming Encounters Date Type Department Care Team ([facility] Contact Info) Description 05/18/2025 9:00 AM EST Office Visit [facility] MED & PEDS [address] [place] [address] Jef Guzman MD [address] [place] [address] 08/25/2025 8:00 AM EDT Office Visit [facility] AD[facility] [address] [place] [address] Fausto Guzman Scheduled Orders Name Type Priority Associated Diagnoses Orde r Schedule CT Abdomen Pelvis w/ Contrast Imaging Routine Left lower quadrant abdominal pain Expected: 11/06/2024, Expires: 11/06/2025 documented as of this encounter Visit Diagnoses Diagnosis Left lower quadrant abdominal pain- Primary Dyslipidemia Other and unspecified hyperlipidemia Arthritis Unspecified arthropathy, site unspecified documented in this encounter Additional Health Concerns Assessment Noted Time PHQ-9 Depression Total Score: 6 10/17/19 25 9:10 AM EDT documented as of this encounter Care Teams Wrapper Sizer Relationship Specialty Start Date End Date Jef Guzman MD [address] [place] [address] PCP - General Internal Medicine 05/02/24 documented as of this encounter
--- OUTSIDE RECORDS SUMMARY | 2025-03-16 19:28 | XMS_ITS | Clinical Summary ---
Author Organization [employer] Address [address] [facility] 7[address] [place] [address] Care Team Providers Care Desktop Operator Name Role Phone Jef Guzman MD Primary Care Provider Allergies Active Allergy Reactions Criticality Noted Date Comments Atorvastatin Cough 08/23/2016 Medications * This document contains information received from the source organization and may not represent a complete record from that organization. meclizine (Antivert) 25 MG tablet Take 1 tablet by mouth every 8 (eight) hours. Active alendronate-cho lecalciferol (Fosamax Plus D) 70-2800 [...] AND BRUSH THOROUGHLY TWICE DAILY 100 mL 09/26/19 23 Active Additional Information Patient not taking.Reported on 08/20/2024 albuterol 108 (90 Base) MCG/ACT inhaler Inhale 2 puffs every 4 (four) hours if needed. 10/18/19 24 Active cyclobenzaprine (Flexeril) 5 MG tablet Take 5 mg by mouth if needed in the morning and at bedtime. 10/10/19 24 Active loratadine (Claritin) 10 MG tablet Take 10 mg by mouth Once per day. 05/30/19 24 Active Blood Pressure kitIndications: Primary hypertension To check the BP daily 1 kit 09/10/19 25 Active triamterene-hyd roCHLOROthiazid e (Dyazide) 37.5-25 MG capsule Take 1 capsule by mouth in the morning. 90 capsule 3 09/19/19 25 Active triamterene-hyd rochlorothiazid e (Maxzide-25) 37.5-25 MG tabletIndicatio ns:Primary hypertension Take 1 tablet by mouth Once per day. 30 tablet 11 10/31/19 25 2025 Active simvastatin (Zocor) 10 MG tabletIndicatio ns:Dyslipidemia Take 1 tablet (10 mg) by mouth at bedtime. 30 tablet 11 11/08/19 25 Active levothyroxine (Synthroid, Levoxyl) 50 MCG tablet TAKE ONE TABLET EVERY MORNING BEFORE BREAKFAST 30 tablet 3 02/03/20 25 Active amLODIPine (Norvasc) 5 MG tabletIndicatio ns:Primary hypertension Take 1 tablet (5 mg) by mouth Once per day. 90 tablet 3 02/06/20 25 Active triamcinolone (Kenalog) 0.1 % creamIndication s:Venous stasis dermatitis Apply topically if needed in the morning and at bedtime (pain and swelling). 30 g 2 02/06/20 25 Active IBU 800 MG tabletIndicatio ns:Arthritis TAKE ONE TABLET ONCE DAILY NEEDED MILD PAIN 30 tablet 2 02/25/20 25 Active melatonin 5 MG tabletIndicatio ns:Primary insomnia Take 2 tablets (10 mg) by mouth Once per day. 60 tablet 1 03/16/20 25 Active Minoxidil (Minoxidil for Women) 5 % foamIndications :Telogen effluvium To the apply to the scalp daily at bedtime. 60 g 2 03/16/20 25 Active melatonin 5 MG tabletIndicatio ns:Primary insomnia Take 1 tablet (5 mg) by mouth Once per day. 90 tablet 3 05/02/20 24 2024 Discontinued(R eorder (will not trigger notification to Pharmacy)) ibuprofen 800 MG tabletIndicatio ns:Arthritis Take 1 tablet (800 mg) by mouth if needed each day for mild pain. 30 tablet 2 11/15/19 25 2024 Discontinued Active Problems Problem Noted Date Diagnosed Date SNEHA (generalized anxiety disorder) 10/16/2024 Primary hypertension 05/02/2024 Arthritis 05/02/2024 Other specified hypothyroidism 05/02/2024 Other osteoporosis without current pathological fracture 05/02/2024 Encounters * This document contains information received from the source organization and may not represent a complete record from that organization. Date Type Department Care Team Description 03/16/2025 2:30 PM EDT Office Visit [facility] [address] [place] [address] Jef Guzman MD Primary hypertension (Primary Dx); Primary insomnia; Primary insomnia; Other dysphagia; Telogen effluvium; Nevus 03/16/2025 Travel 03/13/2025 Telephone [facility] [address] [place] [address] Jef Guzman MD Chart Prep 02/24/2025 Refill [facility] [address] [place] [address] Jef Guzman MD Arthritis 02/23/2025 1:00 PM EDT Office Visit [facility] [address] [place] [address] Fausto Guzman Dental calculus (Primary Dx); Partial edentulism, unspecified edentulism class 02/12/2025 Telephone [facility] [address] [place] [address] Jef Guzman MD Referral 02/05/2025 11:30 AM EDT Office Visit [facility] [address] [place] [address] Jef Guzman MD Primary hypertension (Primary Dx); Venous stasis dermatitis; Decreased hearing of both ears; Left lower quadrant abdominal pain 02/05/2025 Travel 02/04/2025 Telephone [facility] [address] [place] [address] Jef Guzman MD chart prep 01/31/2025 Refill [facility] [address] [place] [address] Jef Guzman MD 01/15/2025 Orders Only [facility] [address] [place] [address] Jef Guzman MD 12/15/2024 Results Follow-Up [facility] [address] [facility] [place] [address] Abdomen Pelvis w/ and w/o Contrast from Last 3 Months Immunizations Immunization Administration Dates Next Due Influenza High-dose Quadrivalent [...] your housing situation today? I have elsa sing 05/02/[address] you li [...] Pulse 93 03/16/2025 2:31 PM EDT Temperature 36.7 C (98 F) 10/30/2024 3:30 PM EDT Respiratory Rate 19 03/16/2025 2:31 PM EDT Oxygen Saturation 98% 03/16/2025 2:31 PM EDT Inhaled Oxygen Concentration - - Weight 93.9 kg (207 lb) 03/16/2025 2:31 PM EDT Height 161 cm (5' 3.39 ) 03/16/2025 2:31 PM EDT Body Mass Index 36.22 03/16/2025 2:31 PM EDT Plan of Treatment Upcoming Encounters Date Type Department Care Team (Late st Contact Info) Description 05/18/2025 9:00 AM EST Office Visit [facility] [address] [place] [address] Jef Guzman MD [address] [place] [address] 08/25/2025 8:00 AM EDT Office Visit [facility] [address] [place] [address] Beauzile, Fausto Health Maintenance Due Date Last Done Comments CT Colonography 1952 Colonoscopy 1950 FIT 1950 Sigmoidoscopy 1950 Zoster Vaccines (1 of 2) 2002 RSV Patients and Patients Aged 60 years or older (1 - Risk 60-74 years 1-dose series) 2012 COVID-19 Vaccine ( - season) 2025 03/10/2021, 09/18/2020, 08/24/2020 Influenza Vaccine (#1) 2025 2, 01/27/2020, 04/14/2019, Additional history exists Alcohol/Substance Use Screening 05/02/2025 05/02/2024 Pneumococcal Vaccine: 50+ Years (2 of 2 - PCV) 05/02/2025 06/14/2022, 04/14/2019, 03/29/2018 Postponed from 06/14/2023 (Patient Refused) SDOH Screening 05/02/2025 05/02/2024 FOBT 05/23/2025 05/23/2024 Mammogram 07/15/2025 07/15/2024, 07/15/2024 Dental Oral Exam 08/24/2025 02/23/2025, , 06/29/2022 Dental Prophylaxis 08/24/2025 02/23/2025, 0 08/20/2024, 02/26/2024, Additional history exists Depression Screening 10/16/2025 10/16/2024, 10/17/19 Dental X-Ray: Bitewings 02/24/2026 02/23/2025, 02/25 Tobacco Screening 03/16/2026 03/16/2025 DTaP/Tdap/Td Vaccines (2 - Td or Tdap) 05/25/2026 05/25/2016 Dental X-Ray: Full Mouth 02/26/2027 02/26/2024 Colorectal [...] Procedure Name Priority Date/Time Associated Diagnosis Comments CBC WITH AUTO DIFFERENTIAL Routine 03/16/2025 3:16 PM EDT Telogen effluvium TSH W/REFLEX TO FT4 Routine 03/16/2025 3 :16 PM EDT Telogen effluvium PERIODIC ORAL EVALUATION - ESTABLISHED PATIENT Routine 02/23/2025 1:00 PM EDT Partial edentulism, unspecified edentulism class CASE PRESENTATION, DETAILED AND EXTENSIVE TREATMENT PLANNING Routine 02/23/2025 1:00 PM EDT Partial edentulism, unspecified edentulism class INTRAORAL - PERIAPICAL EACH ADDITIONAL RADIOGRAPHIC IMAGE Routine 02/23/2025 1:00 PM EDT Partial edentulism, unspecified edentulism class INTRAORAL - PERIAPICAL FIRST RADIOGRAPHIC IMAGE Routine 02/23/2025 1:00 PM EDT Partial edentulism, unspecified edentulism class BITEWINGS - 4 RADIOGRAPHIC IMAGES Routine 02/23/2025 1:00 PM EDT Partial edentulism, unspecified edentulism class ORAL HYGIENE INSTRUCTIONS Routine 02/23/2025 1:00 PM EDT Partial edentulism, unspecified edentulism class PROPHYLAXIS - ADULT Routine 02/23/2025 1 :00 PM EDT Partial edentulism, unspecified edentulism class 5 PONTIC - PORCELAIN/CERAMIC Routine 02/23/2025 12:00 AM EDT 6 RETAINER CROWN - PORCELAIN/CERAMIC Routine 02/23/2025 12:00 AM EDT 4 RETAINER CROWN - PORCELAIN/CERAMIC Routine 02/23/2025 12:00 AM EDT LAB COLOGUARD COLON CANCER SCREEN Routine 05/23/2024 8:30 AM [...] Recently Relevant to Health Maintenance Results * TSH W/Reflex to FT4 (03/16/2025 3:16 PM EDT) TSH reflex Free T4 2.32 0.32 - 4.0 uIU/mL [facility] Blood Venous blood specimen / Unknown 03/16/2025 3:16 PM EDT 03/16/2025 6:20 PM EDT us Jef Guzman MD LAB BLOOD ORDERABLES Final Result [facility] [address] [place] [phone] * CBC auto differential (03/16/2025 3:16 PM EDT) White Blood Count 7.6 4.8 - 10.8 X10*3/uL [facility] Red Blood Count 4.99 4.20 - 5.50 X10*6/uL [facility] Hemoglobin 13.5 12.0 - 16.0 g/dl [facility] Hematocrit 40.9 37.0 - 47.0 % [facility] Mean Corpuscular Volume 82.0 80.0 - 98.0 fL [facility] Mean Corpuscular Hemoglobin 27.1 27.0 - 33.0 pg [facility] Mean Corpuscular HGB Conc 33.0 31.0 - 35.0 g/dl [facility] Red Cell Distribution Width 13.6 11.0 - 16.0 % [facility] Platelet Count 235 160 - 400 X10*3/uL [facility] Mean Platelet Volume 11.8 9.4 - 12.3 fL [facility] Neutrophils Percent Auto 58.3 45 - 73 % [facility] Imm Gran Pct Auto 0.3 0.0 - 0.4 % [facility] Lymphocytes Percent Auto 32.6 20 - 40 % [facility] Monocytes Percent Auto 5.9 2 - 11 % [facility] Eosinophils Percent Auto 2.0 0 - 4 % [facility] Basophils Percent Auto 0.9 0 - 2 % [facility] NRBC Pct Auto 0.0 0.0 - 0.2 /100WBC [facility] Neutrophils Absolute Auto 4.4 2.0 - 8.3 x10*3/uL [facility] Imm Gran Abs Auto 0.02 0.00 - 0.03 X10*3/uL [facility] Lymphocytes Absolute Auto 2.5 1.2 - 4.9 X10*3/uL [facility] Monocytes Absolute Auto 0.5 0.1 - 1.2 X10*3/uL [facility] Eosinophils Absolute Auto 0.2 0.0 - 0.4 X10*3/uL [facility] Basophils Absolute Auto 0.1 0.0 - 0.2 X10*3/uL [facility] NRBC Abs Auto 0.000 0.0 - 0.012 X10*3/uL [facility] Blood Venous blood specimen / Unknown 03/16/2025 3:16 PM EDT 03/16/2025 6:20 PM EDT us Jef Guzman MD LAB BLOOD ORDERABLES Final Result [facility] [address] [place] [phone] * (ABNORMAL) Cologuard?? colon cancer screening (05/23/2024 8:30 AM EST) Cologuard Result Positive( A) Negative 05/28/2024 2:39 PM EST [facility] (CLIA #:[id number]) Comment: POSITIVE TEST RESULT. A positive Cologuard result should be followed with a colonoscopy or visual examination of the colon. The normal value (reference range) for this assay is negative. TEST DESCRIPTION: Composite algorithmic analysis of stool DNA-biomarkers with hemoglobin immunoassay. Quantitative values of individual biomarkers are not [...] (Esdras Laura al, N Engl J Med 2014;370(14):1581-5835.) Cologuard may produce a false negative or false positive result (no colorectal cancer or precancerous polyp present at colonoscopy follow up). A negative Cologuard test result does not guarantee the absence of CRC or advanced adenoma (pre-cancer). The current Cologuard screening interval is every 3 years. ([place] [employer] Society and U.S. Multi-Society Task Force). Cologuard performance data in a 10,000 patient pivotal study using colonoscopy as the reference method can be accessed at the following location: www.exactlabs.com/results. Additional description of the Cologuard test process, warnings and precautions can be found at www.cologuard.com. Stool specimen (specimen) 05/23/2024 8:30 AM EST 05/24/2024 12:04 PM EST Jef Guzman MD LAB MOLECULAR DIAGNOSTICS O RDERABLES Final Result Performing Organization Address City/[facility]/ZIP Co de Phone Number [facility] (CLIA #:[id number]) [address] [place] [address], * Hepatitis C Antibody with Reflex to HCV, RNA, Quantitative, Real-Time PCR (05/15/2024 8:12 AM EST) Hepatitis C Antibody Nonreactive Nonreactive [facility] Comment:Antibodies to HCV no t detected; does not exclude early acuteHCV infection. Blood Venous blood specimen / Unknown 05/15/2024 8:12 AM EST 05/15/2024 2:28 PM EST us Jef Guzman MD LAB BLOOD ORDERABLES Final Result Performing Organization Address [facility] Co de Phone Number [facility] [address] [place] [phone] * Lipid Panel, Standard (05/15/2024 8:12 AM EST) Triglycerides 110 <150 mg/dL [facility] Comment:Desirable Triglyceri de: less than 150 mg/dLBorderline High Triglyceride 150-199 mg/dLHigh Triglyceride: 200-499 mg/dLVery High Triglyceride: greater than or equal to 5OO mg/dL Cholesterol 139 <200 mg/dL [facility] Comment:Desirable Cholestero l: less than 200 mg/dLBorderline High Cholesterol: 200-239 mg/dLHigh Cholesterol: greater than 239 mg/dL LDL Cholesterol Calculated 71 <100 mg/dL [facility] Comment:Desirable LDL: less than 100 mg/dLNear Optimal/Above Optimal LDL: 110- 129 mg/dLBorderline High LDL: 130-159 mg/dLHigh LDL: 160-189 mg/dLVery High LDL: greater than or equal to 190 mg/dL HDL Cholesterol 46 >40 mg/dL [facility] Comment:Desirable HDL: great er than 40 mg/dL Note: This HDL assay may give artificially low results in patients with liver disease. Blood Venous blood specimen / Unknown 05/15/2024 8:12 AM EST 05/15/2024 2:28 PM EST us Jef Guzman MD LAB BLOOD ORDERABLES Final Result [facility] [address] [place] [phone] from Last 3 Months or Most Recently Relevant to Health Maintenance [place] [address] [place] [address] STANDARD [facility] DUAL COMPLETE DENTAL-[facility] Care Teams Desktop Operator Relationship Specialty Start Date End Date Jef Guzman MD [address] [place] [phone] PCP - General Internal Medicine 05/02/24
--- OUTSIDE RECORDS SUMMARY | 2025-03-16 19:28 | XMS_ITS | Encounter Summary ---
Author Organization [employer] Address [address] [facility] 7[address] [place] [address] Care Team Providers Care Electric Refrigerator Preparer Name Role Phone Jef Guzman MD Primary Care Provider [phone] Encounter Details Date Type Department Care Team (Late st Contact Info) Description 10/16/2024 Orders Only [facility] [address] [place] [address] Provider, MD Hanna Social History Tobacco Use Types Packs/Day Years [...] AM EDT documented as of this encounter Functional Status * Over the past 2 weeks, how often have you been bothered by any of the following problems? Question Answer Date of Assessment Author Patient Health Questionnaire-2 Score 2 10/16/2024 9:10 AM EDT Payam Escamilla * Little interest or pleasure in doing things Answer Date of Assessment Author Several days 10/16/2024 9:10 AM EDT Payam Carcamo * Feeling down, depressed, or hopeless Answer Date of Assessment Author Several days 10/16/2024 9:10 AM EDT Payam Carcamo * Trouble falling or staying asleep, or sleeping too much Answer Date of Assessment Author Several days 10/16/2024 9:10 AM EDT Payam Carcamo * Feeling tired or having little energy Answer Date of Assessment Author Several days 10/16/2024 9:10 AM EDT Payam Carcamo * Poor appetite or overeating Answer Date of Assessment Author Several days 10/16/2024 9:10 AM EDT Payam Carcamo * Feeling bad about yourself - or that you are a failure or have let yourself or your family down Answer Date of Assessment Author Several days 10/16/2024 9:10 AM EDT Payam Carcamo * Trouble concentrating on things, such as reading the newspaper or watching television Answer Date of Assessment Author Not at all 10/16/2024 9:10 AM EDT Payam Carcamo * Moving or speaking so slowly that other people could have noticed? Or the opposite - being so fidgety or restless that you have been moving around a lot more than usual. Answer Date of Assessment Author Not at all 10/16/2024 9:10 AM EDT Payam Carcamo * Thoughts that you would be better off or hurting yourself in some way Answer Date of Assessment Author Not at all 10/16/2024 9:10 AM EDT Payam Carcamo * Patient Health Questionnaire-9 Score Answer Date of Assessment Author 6 10/16/2024 9:10 AM EDT Payam Carcamo * How difficult have these problems made it for you to do your work, take care of things at home, or get along with other people? Answer Date of Assessment Author Very difficult 10/16/2024 9:10 AM MALAIKAT Payam Carcamo * Over the last 2 weeks, how often have you been bothered by any of the following problems? Question Answer Date of Assessment Author Feeling nervous, anxious, or on edge 3 10/16/2024 9:10 AM Payam Adler Not being able to stop or control worrying 3 10/16/2024 9:10 AM Payam Adler Worrying too much about different things 3 10/16/2024 9:10 AM Payam Adler Trouble relaxing 3 10/16/2024 9:10 AM EDT Payam Lopez Being so restless that it is hard to sit still 0 10/16/2024 9:10 AM Payam Adler Becoming easily annoyed or irritable 0 10/16/2024 9:10 AM Payam Adler Feeling afraid as if something awful might happen 2 10/16/2024 9:10 AM Payam Patricio SNEHA-7 Total Score 14 10/16/2024 9:10 AM Payam Adler documented as of this encounter Plan of Treatment Upcoming Encounters Date Type Department Care Team (Late st Contact Info) Description 05/18/2025 9:00 AM EST Office Visit [facility] [address] [place] [address] Jef Guzman MD [address] [place] [address] 08/25/2025 8:00 AM EDT Office Visit [facility] AD[facility] [address] [place] [address] Fausto Guzman documented as of this encounter Procedures Procedure Name Priority Date/Time Associated Diagnosis Comments US VASCULAR LOWER EXTREMITY VENOUS LEFT Routine 10/07/2024 3:27 PM EDT documented in this encounter Results * VASC US Lower Extremity Venous Left (10/07/2024 3:27 PM EDT) us Historical Provider CV VASCULAR PROCEDURES Fi nal Result documented in this encounter Visit Diagnoses Not on filedocumented in this encounter Additional Health Concerns Assessment Noted Time PHQ-9 Depression Total Score: 6 10/17/19 25 9:10 AM EDT documented as of this encounter Care Teams Electric Refrigerator Preparer Relationship Specialty Start Date End Date Jef Guzman MD [address] [place] [address] PCP - General Internal Medicine 05/02/24 documented as of this encounter
--- OUTSIDE RECORDS SUMMARY | 2025-03-16 19:28 | XMS_ITS | Encounter Summary ---
Author Organization [employer] Address [address] [facility] [address], [place] [address] Care Team Providers Care Grain Buyer Name Role Phone Jef Guzman MD Primary Care Provider [phone] Reason for Referral * Consultation (Routine) - Closed Specialty Diagnoses / Procedures Referred By Contariel t Referred To Contact Gastroenterology Diagnoses Positive colorectal cancer screening using Cologuard test Jef Guzman MD [address] [place] [address] Phone: tel: fax: Manjinder Melchor MD [address] [place] [address] Phone: tel: fax: Referral ID Status Reason Start Date Expiration Date V isits Requested Visits Authorized [id number] Closed Specialty Services Required 05/29/2024 05/29/2025 1 1 Encounter Details Date Type Department Care Team (Late st Contact Info) Description 05/29/2024 Orders Only [facility] [address] [place] [address] Jef Guzman MD [address] [place] [address] Positive colorectal cancer screening using Cologuard test [...] Upcoming Encounters Date Type Department Care Team ([facility] Contact Info) Description 05/18/2025 9:00 AM EST Office Visit [facility] [address] [place] [address] Jef Guzman MD [address] [place], [place] [phone] 08/25/2025 8:00 AM EDT Office Visit [facility] [address] [place] [address] Fausto Guzman Scheduled Referrals Name Type Priority Associated Diagnoses [...] documented as of this encounter Care Teams Grain Buyer Relationship Specialty Start Date End Date Jef Guzman MD [address] [place] [address] PCP - General Internal Medicine 05/02/24 documented as of this encounter
--- OUTSIDE RECORDS SUMMARY | 2025-03-16 19:28 | XMS_ITS | Encounter Summary ---
Author Organization [employer] Address [address] [facility] [address] [place] [address] Care Team Providers Care Senior Pensions Administrator Name Role Phone Jef Guzman MD Primary Care Provider Encounter Details Date Type Department Care Team (Late st Contact Info) Description 12/10/2024 Orders Only [facility] [address] [place], [place] [phone] Jef Guzman MD [address] [place] [address] Social History Tobacco Use Types Packs/Day Years [...] 05/18/2025 9:00 AM EST Office Visit [facility] [address] [place] [address] Jef Guzman MD [address] [place] [address] 08/25/2025 8:00 AM EDT Office Visit [facility] [address] [place] [address] Fausto Guzman documented as of this encounter Visit Diagnoses Not on filedocumented in this encounter Additional Health Concerns Assessment Noted Time PHQ-9 Depression Total Score: 6 10/17/19 25 9:10 AM EDT documented as of this encounter Care Teams Senior Pensions Administrator Relationship Specialty Start Date End Date Jef Guzman MD [address] [place] [address] PCP - General Internal Medicine 05/02/24 documented as of this encounter
== END 2025-03-16 15:14 | disposition home or self-care (01) ==
LOC: HO.CHCLDS 15:13
PROVIDERS: PCP Internal Medicine; Visit Provider Internal Medicine
DX: L65.0 Telogen effluvium (principal)
CPT/HCPCS: 36415; 84443; 85025